=== PATIENT | female | born 1930 | race Caucasian/White ===

== ENCOUNTER 2016-11-23 13:34 | Observation (INO) | payer OTHER ==
[2016-11-23] VITALS (7 sets, daily range): BP systolic 110–147; BP diastolic 69–83; PULSE 82–97; RESP 16–20; TEMP 97.6–97.8; O2SAT 95–96
[~2016-11-23] VITALS: Ht 152.4 cm; Wt 75.0 kg
--- NOTE | 2016-11-23 14:19 | PD ---
HPI Chief Complaint: Cardiac Complaint Time Seen by Provider: 14:13 Travel History International Travel<30 days: No Contact w/Intl Traveler<30days: No Traveled to known affect area: No History of Present Illness HPI 85-year-old female that presents to the ED for evaluation of palpitations. Per patient she was diagnosed on Saturday with atrial fibrillation by her primary care doctor who did an EKG at the time. Per patient she was complaining at the time of shortness of breath with exertion and was found to have A. fib. Patient was started on Cardiazem which she started today as well as a look was. Per patient she's never taken these medications before. Per patient she was told to take the amlodipine and start on the Cardizem. Per patient she was feeling fine today but when she took her carditis and afterwards she started stand up and she felt dizzy and lightheaded. Per patient she did not passed out or fell but ever since she's been having more dizzy spells when she stands. She can barely ambulate without having the vertigo. She denies any chest pain but states having some palpitation-like sensations especially when she lays down. She's never had anything like this before. No history of heart disease. Per patient she is supposed to follow with her rn document improvement specialist sometime soon but because of the insurance it's been an ordeal. She basically came here because of the dizziness and the palpitations. She denies any chest pain. She denies any shortness of breath or time with exertion when she walks for long period of time. She denies any numbness tingling or weakness. No nausea or vomiting. No cold like symptoms. PFSH Past Medical History Hx Anticoagulant Therapy: Yes Atrial Fibrillation: Yes Social History Alcohol Use: No Tobacco Use: No Substance Use: No Allergies-Medications (Allergen,Severity, Reaction): Coded Allergies: No Known Allergies (Unverified , 11/23/16) Reported Meds & Prescriptions Reported Meds & Active Scripts Active Reported Calcium + D3 (Calcium Carbonate-Cholecalciferol) 600-200 Mg-Unit Tab 1 Tab PO DAILY Vitamin D-1000 (Cholecalciferol) 1,000 Unit Tab 1,000 Units PO DAILY Simvastatin 40 Mg Tab 40 Mg PO HS Lisinopril 5 Mg Tab 5 Mg PO DAILY Metoprolol Tartrate 50 Mg Tab 50 Mg PO DAILY Eliquis (Apixaban) 2.5 Mg Tab 2.5 Mg PO DAILY Dilt-Xr (Diltiazem HCl) 240 Mg Caper 240 Mg PO DAILY Review of Systems Except as stated in HPI: all other systems reviewed are Neg Physical Exam Narrative GENERAL: SKIN: Warm and dry. HEAD: Atraumatic. Normocephalic. EYES: Pupils equal and round. No scleral icterus. No injection or drainage. ENT: No nasal bleeding or discharge. Mucous membranes pink and moist. Tongue is midline. No uvula deviation. NECK: Trachea midline. No JVD. CARDIOVASCULAR: Irregular rate and rhythm. No obvious murmurs, S3, S4. RESPIRATORY: No accessory muscle use. Clear to auscultation. Breath sounds equal bilaterally. GASTROINTESTINAL: Abdomen soft, non-tender, nondistended. Hepatic and splenic margins not palpable. MUSCULOSKELETAL: Extremities without clubbing, cyanosis, or edema. No obvious deformities. Full range of motion of the upper and lower extremities bilaterally. 2+ pulses bilaterally. NEUROLOGICAL: Awake and alert. No obvious cranial nerve deficits. Motor grossly within normal limits. Five out of 5 muscle strength in the arms and legs. Normal speech. PSYCHIATRIC: Appropriate mood and affect; insight and judgment normal. Data Data Last Documented VS Vital Signs Date Time Temp Pulse Resp B/P Pulse Ox O2 Delivery O2 Flow Rate FiO2 11/23/16 14:25 95 Room Air 11/23/16 14:25 85 20 130/79 81 20 141/72 101 20 147/78 11/23/16 13:36 97.8 Orders Electrocardiogram (11/23/16 ) Electrocardiogram (11/23/16 13:59) Basic Metabolic Panel (Bmp) (11/23/16 13:59) Ckmb (Isoenzyme) Profile (11/23/16 13:59) Complete Blood Count With Diff (11/23/16 13:59) Magnesium (Mg) (11/23/16 13:59) Prothrombin Time / Inr (Pt) (11/23/16 13:59) Act Partial Throm Time (Ptt) (11/23/16 13:59) Troponin I (11/23/16 13:59) Chest, Single Ap (11/23/16 13:59) Ecg Monitoring (11/23/16 13:59) Bilateral Bp Monitoring (11/23/16 13:59) Iv Access Insert/Monitor (11/23/16 13:59) Oximetry (11/23/16 13:59) Orthostatic Vital Signs (11/23/16 13:59) Labs Laboratory Tests Test 11/23/16 14:10 White Blood Count 11.8 TH/MM3 Red Blood Count 4.26 MIL/MM3 Hemoglobin 12.7 GM/DL Hematocrit 38.5 % Mean Corpuscular Volume 90.5 FL Mean Corpuscular Hemoglobin 29.8 PG Mean Corpuscular Hemoglobin 32.9 % Concent Red Cell Distribution Width 12.9 % Platelet Count 238 TH/MM3 Mean Platelet Volume 8.8 FL Neutrophils (%) (Auto) 73.7 % Lymphocytes (%) (Auto) 16.8 % Monocytes (%) (Auto) 6.2 % Eosinophils (%) (Auto) 2.9 % Basophils (%) (Auto) 0.4 % Neutrophils # (Auto) 8.7 TH/MM3 Lymphocytes # (Auto) 2.0 TH/MM3 Monocytes # (Auto) 0.7 TH/MM3 Eosinophils # (Auto) 0.3 TH/MM3 Basophils # (Auto) 0.0 TH/MM3 CBC Comment DIFF FINAL Differential Comment Prothrombin Time 11.3 SEC Prothromb Time International 1.0 RATIO Ratio Activated Partial 25.8 SEC Thromboplast Time Sodium Level 139 MEQ/L Potassium Level 4.0 MEQ/L Chloride Level 105 MEQ/L Carbon Dioxide Level 27.6 MEQ/L Anion Gap 6 MEQ/L Blood Urea Nitrogen 22 MG/DL Creatinine 1.23 MG/DL Estimat Glomerular Filtration 41 ML/MIN Rate Random Glucose 210 MG/DL Calcium Level 9.5 MG/DL Magnesium Level 1.6 MG/DL Total Creatine Kinase 57 U/L Troponin I LESS THAN 0.02 NG/ML [facility] Medical Decision Making Medical Screen Exam Complete: Yes Emergency Medical Condition: Yes Medical Record Reviewed: Yes Interpretation(s) EKG show A. fib with a rate of 81. No signs of ischemia read by me and attending. CBC & BMP Diagram 11/23/16 14:10 CKMB is negative troponin is negative PT and PTT WNL Last Impressions Chest X-Ray 11/23/16 1921 Signed Impressions: Service Date/Time: Wednesday, November 23, 2016 13:57 - CONCLUSION: Chronic changes without evidence of acute air space disease or significant congestion. Mane Powers MD Differential Diagnosis A. fib versus palpitations versus AK versus electrolyte abnormality versus vacation side effect versus orthostatic hypotension versus dizziness versus vertigo versus lightheadedness Narrative Course 85-year-old female that presents to the ED for evaluation of dizziness and palpitations. Patient was properly examined and was found to have signs and symptoms consistent appears to be A. fib. She does not appear to be in RVR at this time. I question whether most of her symptoms are more related to the side effect of the medication. Patient did not have any palpitations before she had the evaluation Saturday but she does start having it today after taking the Cardizem. Regardless we will start a cardiac workup on her to make sure there is no other acute disease. She is agreeable with this plan. IV was started, EKG and labs ordered. Labs and imaging were essentially unremarkable other than for A. fib. Orthostatics were within normal limits. Family member does tell me that patient did almost fell to the ground. At this time case was discussed in my attending who evaluated the patient and recommends speaking with primary care physician. I spoke personally with Dr. Anderson over the phone who recommends that the patient may be observed and do workup for A. fib and she 's never had this before. Patient is [employer] so [facility] was contacted. Dr Brandon agrees to admission. Procedures EKG Prior to Arrival: No Diagnosis Primary Impression: Pre-syncope Additional Impression: New onset atrial fibrillation Admitting Information Admitting Physician Requests: Observation Mani Ramirez Nov 23, 2016 14:19
[2016-11-23 14:25] LABS: AUTOMATED NEUTROPHIL # 8.7 TH/MM3 (1.8-7.7); BASOPHIL % 0.4 % (0.0-2.0); EOSINOPHIL # 0.3 TH/MM3 (0-0.4); EOSINOPHIL % 2.9 % (0.0-4.0); HEMATOCRIT 38.5 % (35.0-46.0); HEMO FLAGS DIFF FINAL; LYMPH % 16.8 % (9.0-44.0); MEAN CELL VOLUME 90.5 FL (80.0-100.0); MEAN CORPUSCULAR HEMOGLOBIN 29.8 PG (27.0-34.0); MEAN CORPUSCULAR HGB CONC 32.9 % (32.0-36.0); MONO % 6.2 % (0.0-8.0); NEUT % 73.7 % (16.0-70.0); PLATELET COUNT 238 TH/MM3 (150-450); RED BLOOD COUNT 4.26 MIL/MM3 (4.00-5.30); RED CELL DISTRIBUTION WIDTH 12.9 % (11.6-17.2); WHITE BLOOD COUNT 11.8 TH/MM3 (4.0-11.0)
--- NOTE | 2016-11-23 14:32 | RADRPT ---
EXAM DATE/TIME: 11/23/2016 13:57 [facility] COMPARISON: No previous studies available for comparison. INDICATIONS : Tachycardia. MEDICAL HISTORY : Atrial fibrillation SURGICAL HISTORY : section. ENCOUNTER: Initial ACUITY: 1 day PAIN SCORE: 0/10 LOCATION: chest FINDINGS: Mild interstitial prominence is seen in the lungs. There is no evidence of consolidating airspace dis ease or mass densities. There are no effusions. Heart is at the upper limits of normal in size. CONCLUSION: Chronic changes without evidence of acute air space disease or significant congestion. Mane Powers MD on November 23, 2016 at 14:29 Board Certified Radiologist. This report was verified electronically.
[2016-11-23 14:35] LABS: APTT (PATIENT) 25.8 SEC (24.3-30.1); PROTHROMBIN TIME - PATIENT 11.3 SEC (9.8-11.6)
[2016-11-23 14:40] LABS: ANION GAP 6 MEQ/L (5-15); BICARBONATE 27.6 MEQ/L (21.0-32.0); BLOOD UREA NITROGEN 22 MG/DL (7-18); CHLORIDE 105 MEQ/L (98-107); GLOMERULAR FILTRATION RATE 41 ML/MIN (>89); MAGNESIUM 1.6 MG/DL (1.5-2.5); SODIUM (NA) 139 MEQ/L (136-145)
[2016-11-23 14:44] LABS: CREATINE KINASE 57 U/L (26-192)
[2016-11-23] MEDS ORDERED: CALC600T10 PO (15:24)
[2016-11-23] MEDS ORDERED: DILT240C36 PO (15:24)
[2016-11-23] MEDS ORDERED: APIX2.5T PO (15:24)
[2016-11-23] MEDS ORDERED: SIMV40TA PO (15:24)
[2016-11-23] MEDS ORDERED: VITA1000 PO (15:24)
[2016-11-23] MEDS ORDERED: LISI-519 PO (15:24)
[2016-11-23] MEDS ORDERED: METO50TA PO (15:24)
[2016-11-23] MEDS ORDERED: ONDANSETRON HCL 4 MG/2 ML VIAL IV PUSH PRN (15:45)
[2016-11-23] MEDS ORDERED: ACETAMINOPHEN 325 MG TAB PO PRN (15:45)
--- NOTE | 2016-11-23 15:59 | HHI.HP ---
[facility] Physician Lakia Hall MD Admission Diagnosis new onset afib, pre-syncopal episode Diagnoses: (1) New onset atrial fibrillation Diagnosis: Principal (2) Pre-syncope Diagnosis: Principal Chief Complaint: dizziness Travel History International Travel<30 Days: No Contact w/Intl Traveler <30 Da: No Traveled to Known Affected Are: No History of Present Illness patient is a 85 y/o female with history of hypertension and dyslipidemia who presented to ER with dizziness. she says that she's had palpitations for one week. she had an EKG two days ago and was diagnosed with atrial fibrillation. she was started on cardizem and eliquis. she says that she took the first dose of these two medications this morning after which she started to feel dizzy. she denies any syncope, chest pain, sob, nausea or diaphoresis. Review of Systems Constitutional: COMPLAINS OF: Dizziness, DENIES: Fever, Weight loss, Chills, Night Sweats Eyes: DENIES: Blurred vision, Diplopia, Vision loss, Double Vision Ears, nose, mouth, throat: DENIES: Tinnitus, Vertigo, Throat pain, Epistaxis Respiratory: DENIES: Apneas, Cough, Snoring, Wheezing, Hemoptysis, Sputum production, Shortness of breath Cardiovascular: DENIES: Chest pain, Palpitations, Syncope, Dyspnea on Exertion , PND, Lower Extremity Edema, Orthopnea, Claudication Gastrointestinal: DENIES: Abdominal pain, Black stools, Bloody stools, Constipation, Diarrhea, Nausea, Vomiting, Difficulty Swallowing, Anorexia Genitourinary: DENIES: Urinary frequency, Urgency, Hematuria, Dysuria Musculoskeletal: DENIES: Joint pain, Muscle aches, Stiffness, Joint Swelling Integumentary: DENIES: Rash Neurologic: DENIES: Abnormal gait, Headache, Localized weakness, Paresthesias, Seizures, Speech Problems, Tremor, Poor Balance Psychiatric: DENIES: Anxiety, Confusion, Mood changes, Depression, Hallucinations, Agitation, Suicidal Ideation, Homicidal Ideation, Delusions Past Family Social History Past Medical History hypertension dyslipidemia Past Surgical History Reported Medications lisinopril eliquis metoprolol simvastatin cardizem CD Allergies: Coded Allergies: No Known Allergies (Unverified , 11/23/16) Family History not relevant ton this admission. Social History no smoking or drinking. Physical Exam Vital Signs Vital Signs Date Time Temp Pulse Resp B/P Pulse Ox O2 Delivery O2 Flow Rate FiO2 11/23/16 14:25 95 Room Air 11/23/16 14:25 85 20 130/79 81 20 141/72 101 20 147/78 11/23/16 14:15 84 20 147/78 95 11/23/16 13:36 97.8 88 20 146/83 95 Room Air Physical Exam GENERAL: elderly female, in no apparent distress. SKIN: No rashes, ecchymoses or lesions. Cool and dry. HEAD: Atraumatic. Normocephalic. No temporal or scalp tenderness. EYES: Pupils equal round and reactive. Extraocular motions intact. No scleral icterus. No injection or drainage. ENT: Nose without bleeding, purulent drainage or septal hematoma. Throat without erythema, tonsillar hypertrophy or exudate. Uvula midline. Airway patent. NECK: Trachea midline. No JVD or lymphadenopathy. Supple, nontender, no meningeal signs. CARDIOVASCULAR: Regular rate and irregular rhythm without murmurs, gallops, or rubs. RESPIRATORY: Clear to auscultation. Breath sounds equal bilaterally. No wheezes , rales, or rhonchi. GASTROINTESTINAL: Abdomen soft, non-tender, nondistended. No hepato-splenomegaly , or palpable masses. No guarding. MUSCULOSKELETAL: Extremities without clubbing, cyanosis, or edema. No joint tenderness, effusion, or edema noted. No calf tenderness. Negative Homans sign bilaterally. NEUROLOGICAL: Awake and alert. Cranial nerves II through XII intact. Motor and sensory grossly within normal limits. Five out of 5 muscle strength in all muscle groups. Normal speech. Laboratory Laboratory Tests Test 11/23/16 14:10 White Blood Count 11.8 Red Blood Count 4.26 Hemoglobin 12.7 Hematocrit 38.5 Mean Corpuscular Volume 90.5 Mean Corpuscular Hemoglobin 29.8 Mean Corpuscular Hemoglobin 32.9 Concent Red Cell Distribution Width 12.9 Platelet Count 238 Mean Platelet Volume 8.8 Neutrophils (%) (Auto) 73.7 Lymphocytes (%) (Auto) 16.8 Monocytes (%) (Auto) 6.2 Eosinophils (%) (Auto) 2.9 Basophils (%) (Auto) 0.4 Neutrophils # (Auto) 8.7 Lymphocytes # (Auto) 2.0 Monocytes # (Auto) 0.7 Eosinophils # (Auto) 0.3 Basophils # (Auto) 0.0 CBC Comment DIFF FINAL Differential Comment Prothrombin Time 11.3 Prothromb Time International 1.0 Ratio Activated Partial 25.8 Thromboplast Time Sodium Level 139 Potassium Level 4.0 Chloride Level 105 Carbon Dioxide Level 27.6 Anion Gap 6 Blood Urea Nitrogen 22 Creatinine 1.23 Estimat Glomerular Filtration 41 Rate Random Glucose 210 Calcium Level 9.5 Magnesium Level 1.6 Total Creatine Kinase 57 Troponin I LESS THAN 0.02 Result Diagram: 11/23/16 1410 11/23/16 1410 Imaging Last Impressions Chest X-Ray 11/23/16 1359 Signed Impressions: Service Date/Time: Wednesday, November 23, 2016 13:57 - CONCLUSION: Chronic changes without evidence of acute air space disease or significant congestion. Mane Powers MD Assessment and Plan Assessment and Plan A/P - atrial fibrillation- newly diagnosed with near-syncope negative for orthostatic hypotension- hold cardizem- decrease metoprolol and continue eliquis- start gentle IV hydration will check echo- monitor on telemetry- consult cardiology -hypertension; decrease metoprolol- hold lisinopril and cardizem- will monitor -possible acute kidney injury; gentle IV hydration- BMP in am -hyperglycemia?- no history of diabetes- will check A1c -dyslipidemia; resume home meds -DVT prophylaxis; on eliquis Discussed Condition With ER and the patient. Rod Taylor MD Nov 23, 2016 15:59
[2016-11-23] MEDS ORDERED: SODIUM CHLORID 0.9% 500 ML INJ 500 ML IV ONE (16:00)
[2016-11-23] MEDS: PRAVASTATIN SOD 80 MG TAB PO SCH (20:05)
--- NOTE | 2016-11-23 22:02 | EC ---
Study Study Date:11/23/2016 STUDY CONCLUSIONS SUMMARY - Procedure narrative: Transthoracic echocardiography. Image quality was fair. Scanning was performed from the parasternal, apical, and subcostal acoustic windows. - Left ventricle: The cavity size was normal. Wall thickness was normal. Systolic function was mildly to moderately reduced. The estimated ejection fraction was in the range of 40% to 45%. Diffuse hypokinesis. - Mitral valve: Moderate regurgitation. - Tricuspid valve: Mild regurgitation. - Pulmonary arteries: PA peak pressure: 44mm Hg (S). If LV function is below 40, please consider prescribing an ACEI or ARB or document rationale for non-use. PROCEDURE DATA STUDY STATUS: Elective. Procedure: Transthoracic echocardiography. Image quality was fair. Scanning was performed from the parasternal, apical, and subcostal acoustic windows. Study completion: The patient tolerated the procedure well. Transthoracic echocardiography. M-mode, complete 2D, complete spectral Doppler, and color Doppler. Patient status: Inpatient. CARDIAC ANATOMY LEFT VENTRICLE: The cavity size was normal. Wall thickness was normal. Systolic function was mildly to moderately reduced. The estimated ejection fraction was in the range of 40% to 45%. Diffuse hypokinesis. AORTIC VALVE: Trileaflet; normal thickness leaflets. Doppler: Transvalvular velocity was within the normal range. There was no stenosis. No regurgitation. AORTA: Aortic root: The aortic root was normal in size. MITRAL VALVE: Structurally normal valve. Doppler: Transvalvular velocity was within the normal range. There was no evidence for stenosis. Moderate regurgitation. Peak gradient: 3mm Hg (D). LEFT ATRIUM: The atrium was normal in size. RIGHT VENTRICLE: The cavity size was normal. Wall thickness was normal. PULMONIC VALVE: Doppler: Transvalvular velocity was within the normal range. There was no evidence for stenosis. No regurgitation. TRICUSPID VALVE: Structurally normal valve. Doppler: Transvalvular velocity was within the normal range. Mild regurgitation. PULMONARY ARTERY: The main pulmonary artery was normal-sized. Systolic pressure was within the normal range. RIGHT ATRIUM: The atrium was normal in size. PERICARDIUM: There was no pericardial effusion. SYSTEMIC VEINS: Inferior vena cava: The vessel was normal in size. BASIC MEASUREMENTS ADULT Normal Left ventricle LV internal dimension, ED, chordal level, 43.5 mm 43-52 PLAX LV posterior wall thickness, ED 8.21 mm IVS/LVPW ratio, ED *1.38 <1.3 Ventricular septum Septal thickness, ED 11.3 mm Aortic valve Leaflet separation 17 mm 15-26 Left atrium Anterior-posterior dimension 33 mm Right ventricle RV internal dimension, ED, PLAX 23.2 mm 19-38 BASIC MEASUREMENTS ADULT Normal Aortic valve Leaflet separation 17 mm 15-26 Aorta Root diameter, ED 29 mm 20-37 DOPPLER MEASUREMENTS ADULT Normal Main pulmonary artery Pressure, S *44 mm Hg =30 Mitral valve Peak E-wave velocity 93.3 cm/s Peak gradient, D 3 mm Hg Maximal regurgitant velocity 453 cm/s Tricuspid valve Regurgitant peak velocity 293 cm/s Peak RV-RA gradient, S 34 mm Hg Maximal regurgitant velocity 293 cm/s Systemic veins Estimated CVP 10 mm Hg Right ventricle RV pressure, S *44 mm Hg <30 LEGEND: Mean values are shown as u=mean value. Asterisk (*) fajardo values outside specified normal range. Prepared and signed by Nemesio Henley [id number]
[2016-11-24] VITALS (8 sets, daily range): BP systolic 102–145; BP diastolic 43–90; PULSE 64–124; RESP 16–20; TEMP 97.5–98.8; O2SAT 94–98
--- NOTE | 2016-11-24 07:24 | HHI.PR ---
Subjective Remarks resting comfortably with no distress. no chest pain, sob or dizziness. Objective Vitals Vital Signs Date Time Temp Pulse Resp B/P Pulse Ox O2 Delivery O2 Flow Rate FiO2 11/24/16 04:07 97.5 109 20 102/63 95 11/23/16 23:25 97.8 95 20 113/75 96 11/23/16 21:43 85 11/23/16 19:22 97.6 97 20 110/69 96 11/23/16 16:44 82 16 147/78 95 Room Air 11/23/16 14:25 95 Room Air 11/23/16 14:25 85 20 130/79 81 20 141/72 101 20 147/78 11/23/16 14:15 84 20 147/78 95 11/23/16 13:36 97.8 88 20 146/83 95 Room Air I/O 11/23/16 11/23/16 11/23/16 11/24/16 11/24/16 11/24/16 07:00 15:00 23:00 07:00 15:00 23:00 Intake Total 740 ml Balance 740 ml Intake Oral 240 ml IV Total 500 ml # Voids 3 3 Result Diagram: 11/23/16 1410 11/23/16 1410 Imaging Last Impressions Chest X-Ray 11/23/16 1359 Signed Impressions: Service Date/Time: Wednesday, November 23, 2016 13:57 - CONCLUSION: Chronic changes without evidence of acute air space disease or significant congestion. Mane Powers MD Objective Remarks GENERAL: This is a well-nourished, well-developed patient, in no apparent distress. CARDIOVASCULAR: Regular rate and irregular rhythm without murmurs, gallops, or rubs. RESPIRATORY: Clear to auscultation. Breath sounds equal bilaterally. No wheezes , rales, or rhonchi. GASTROINTESTINAL: Abdomen soft, non-tender, nondistended. Normal, active bowel sounds MUSCULOSKELETAL: Extremities without clubbing, cyanosis, or edema. NEURO: Alert & Oriented x4 to person, place, time, situation. Moves all ext x4 Procedures none Medications and IVs Current Medications Ondansetron HCl (Zofran Inj) 4 mg Q8HR PRN IV PUSH NAUSEA; Start 11/23/16 at 15 :45 Acetaminophen (Tylenol) 650 mg Q4H PRN PO FEVER/PAIN; Start 11/23/16 at 15:45 Apixaban (Eliquis) 2.5 mg DAILY PO ; Start 11/24/16 at 09:00 Pravastatin Sodium (Pravachol) 80 mg HS PO Last administered on 11/23/16t 20:05 ; Start 11/23/16 at 21:00 Metoprolol Tartrate 25 mg 25 mg DAILY PO ; Start 11/24/16 at 09:00 Sodium Chloride (NS 500 ml Inj) 500 ml @ 50 mls/hr Q10H ONCE IV Last administered on 11/23/16 17:00; Start 11/23/16 at 16:00; Stop 11/24/16 at 01:59 ; Status DC A/P Assessment and Plan A/P - atrial fibrillation- newly diagnosed with near-syncope negative for orthostatic hypotension- hold cardizem- decreased metoprolol and continue eliquis- echo with EF 40-45%- monitor on telemetry- consulted cardiology -hypertension; decrease metoprolol- hold lisinopril and cardizem- will monitor -possible acute kidney injury; received gentle IV hydration- -hyperglycemia?- no history of diabetes- check A1c -dyslipidemia; resume home meds -DVT prophylaxis; on eliquis Discharge Planning awaiting cardiology evaluation. Rod Taylor MD Nov 24, 2016 07:24
[2016-11-24 08:03] LABS: POTASSIUM 3.6 MEQ/L (3.5-5.1)
[2016-11-24] MEDS ORDERED: METOPROLOL TARTRATE 25 MG TAB PO SCH (09:00)
[2016-11-24] MEDS ORDERED: APIXABAN 2.5 MG TABLET PO SCH (09:00)
[2016-11-24 10:33] LABS: HEMOGLOBIN A1a 0.9 %; HEMOGLOBIN A1b 1.7 %; HEMOGLOBIN Ao 84.4 %; HEMOGLOBIN LA1C 2.4 %; HEMOGLOBIN P3 4.2 %
--- NOTE | 2016-11-24 15:58 | EKG ---
Date Performed: 11/23/2016 Time Performed: 14:07:33 PTAGE: 85 years EKG: ATRIAL FIBRILLATION NONSPECIFIC ST & T-WAVE ABNORMALITY Clinical correlation is recommended ABNORMAL RHYTHM ECG NO PREVIOUS TRACING DOCTOR: Flip Rothman Interpretating Date/Time 11/24/2016 15:58:25
--- NOTE | 2016-11-24 16:04 | MB ---
cc: ARLEN KEMP MD DATE OF CONSULTATION: 11/14/2016 REASON FOR CONSULTATION: New onset atrial fibrillation. HISTORY OF PRESENT ILLNESS: The patient is a very pleasant 85-year-old woman with a history of hypertension and hyperlipidemia who presented to her primary care physician with general / nonspecific complaints of fatigue and weakness and was found to have atrial fibrillation. She was started on Eliquis and diltiazem 240 milligrams daily. She began these medications the next day and fairly quickly afterwards began feeling very poor / weak / presyncopal and thus presented to the emergency department. Here she has been in reasonably controlled atrial fibrillation and she feels much better. She denies any current chest pain, shortness of breath, lightheadedness or dizziness. PAST MEDICAL HISTORY: As above. MEDICATIONS Her current medications are: 1. Metoprolol 15 milligrams twice a day. 2. Eliquis 2.5 milligrams daily. ALLERGIES: NO KNOWN DRUG ALLERGIES. PHYSICAL EXAMINATION: VITAL SIGNS: Afebrile, pulse 77, respiratory rate 80, blood pressure 131/90, satting 96% on room air. GENERAL: A pleasant well-appearing elderly woman in no acute distress. NECK: No jugular venous distention. LUNGS: Clear to auscultation bilaterally. CARDIOVASCULAR: Irregularly irregular rhythm with regular rate. No murmurs appreciated. ABDOMEN: Benign. EXTREMITIES: No edema. LABORATORY DATA: Troponin x1. Sodium 145, potassium 3.6, chloride 109, bicarbonate 27.0, BUN 19, creatinine 0.96, glucose 105. White count 11.8, hematocrit 38.5, platelet count 238,000. CARDIOLOGY STUDIES: EKG shows atrial fibrillation at a rate of [address] changes. Echocardiogram shows an ejection fraction of 40% to 45% with moderate mitral regurgitation. IMPRESSION: 1. New onset atrial fibrillation. Patient with newly discovered atrial fibrillation by her PCP felt presyncopal, I suspect due to perhaps bradycardic rate from an increase in her AV lorena blocking medications. She is currently off her diltiazem but her rates are slightly high. I have started her on 50 milligrams of metoprolol twice a day and we can watch her telemetry to see how her rates do. 2. Cardiomyopathy. 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 She is currently on metoprolol. I will add low-dose lisinopril as well. I will have her undergo a nuclear stress test to ensure no sign of an ischemic etiology. I suspect she will be able to be discharged home tomorrow. 3. With regard to her anticoagulation, her creatinine is below 1.5, so given her weight she would qualify for full dose Eliquis for anticoagulation so I will make that adjustment now. Further recommendations based on her clinical course. Thank you again for the opportunity to participate in this patient's care. MD JANICE Ramos/VALENTINA /2:40 PM /3:46 PM
[2016-11-24] MEDS: METOPROLOL TARTRATE 50 MG TAB PO SCH (21:23)
[2016-11-24] MEDS: PRAVASTATIN SOD 80 MG TAB PO SCH (21:24)
[2016-11-25] VITALS (8 sets, daily range): BP systolic 118–140; BP diastolic 57–79; PULSE 60–120; RESP 16–21; TEMP 96.1–98.7; O2SAT 93–98
--- NOTE | 2016-11-25 08:16 | HHI.PR ---
Subjective Remarks resting comfortably with no distress. overall doing fine. no chest pain, sob or palpitations. Objective Vitals Vital Signs Date Time Temp Pulse Resp B/P Pulse Ox O2 Delivery O2 Flow Rate FiO2 11/25/16 07:40 97.7 67 16 127/75 98 11/25/16 05:01 98.7 78 18 126/65 97 11/24/16 23:57 98.8 64 18 121/57 98 11/24/16 20:39 98.8 95 18 117/57 94 11/24/16 20:00 102 11/24/16 17:01 70 20 145/63 96 11/24/16 16:14 98.2 70 16 102/43 95 I/O 11/24/16 11/24/16 11/24/16 11/25/16 11/25/16 11/25/16 07:00 15:00 23:00 07:00 15:00 23:00 Intake Total 740 ml 360 ml Output Total 1 ml Balance 740 ml 359 ml Intake Oral 240 ml 360 ml IV Total 500 ml Output Stool Total 1 ml # Voids 3 2 Result Diagram: 11/23/16 1410 11/24/16 0635 Imaging Last Impressions Chest X-Ray 11/23/16 1359 Signed Impressions: Service Date/Time: Wednesday, November 23, 2016 13:57 - CONCLUSION: Chronic changes without evidence of acute air space disease or significant congestion. Mane Powers MD Objective Remarks GENERAL: This is a well-nourished, well-developed patient, in no apparent distress. CARDIOVASCULAR: Regular rate and irregular rhythm without murmurs, gallops, or rubs. RESPIRATORY: Clear to auscultation. Breath sounds equal bilaterally. No wheezes , rales, or rhonchi. GASTROINTESTINAL: Abdomen soft, non-tender, nondistended. Normal, active bowel sounds MUSCULOSKELETAL: Extremities without clubbing, cyanosis, or edema. NEURO: Alert & Oriented x4 to person, place, time, situation. Moves all ext x4 Procedures none Medications and IVs Current Medications Ondansetron HCl (Zofran Inj) 4 mg Q8HR PRN IV PUSH NAUSEA; Start 11/23/16 at 15 :45 Acetaminophen (Tylenol) 650 mg Q4H PRN PO FEVER/PAIN; Start 11/23/16 at 15:45 Apixaban (Eliquis) 2.5 mg DAILY PO Last administered on 11/24/16 08:26; Start 11/24/16 at 09:00; Stop 11/24/16 at 14:42; Status DC Pravastatin Sodium (Pravachol) 80 mg HS PO Last administered on 11/24/16 21:24 ; Start 11/23/16 at 21:00 Metoprolol Tartrate 25 mg 25 mg DAILY PO Last administered on 11/24/16 08:26; Start 11/24/16 at 09:00; Stop 11/24/16 at 14:35; Status DC Sodium Chloride (NS 500 ml Inj) 500 ml @ 50 mls/hr Q10H ONCE IV Last administered on 11/23/16 17:00; Start 11/23/16 at 16:00; Stop 11/24/16 at 01:59 ; Status DC Metoprolol Tartrate (Lopressor) 50 mg BID PO Last administered on 11/24/16 21: 23; Start 11/24/16 at 21:00 Apixaban (Eliquis) 5 mg DAILY PO ; Start 11/25/16 at 09:00 A/P Assessment and Plan A/P - atrial fibrillation- newly diagnosed with near-syncope negative for orthostatic hypotension- hold cardizem- contyinue metoprolol and continue eliquis- echo with EF 40-45%-will add low dose TAMI-I- monitor on telemetry- cardiology consult appreciated- awaiting stress test. -hypertension; on metoprolol- start low dose lisinopril and hold cardizem- will monitor -possible acute kidney injury; received gentle IV hydration- -hyperglycemia?- no history of diabetes- A1c; 6. -dyslipidemia; resumed home meds -DVT prophylaxis; on eliquis Discharge Planning possible dc home later today . case management for [facility]. see med list. f/u; pcp and cardiology. d/w the patient. Rod Taylor MD Nov 25, 2016 08:16
[2016-11-25] MEDS ORDERED: LISI2.5T3 PO (08:18)
[2016-11-25] MEDS ORDERED: APIX5TAB PO (08:18)
[2016-11-25] MEDS ORDERED: METO50TA PO (08:18)
--- NOTE | 2016-11-25 08:19 | HHI.FF ---
Face to Face Verification Diagnosis: (1) New onset atrial fibrillation Home Health Nursing Order: Medical education Signs/symptoms of disease process Medication education-adverse effect Nursing assessment with vital signs I have seen patient Guera Del Castillo on 11/25/16. My clinical findings support the need for the requested home health care services because: Ltd mobility - disease progression I certify that my clinical findings support that this patient is homebound because: Poor cardiac reserve Rod Taylor MD Nov 25, 2016 08:19
[2016-11-25] MEDS: APIXABAN 5 MG TABLET PO SCH (08:46)
[2016-11-25] MEDS: METOPROLOL TARTRATE 50 MG TAB PO SCH ×2 (08:46→21:20)
[2016-11-25] MEDS ORDERED: REGADENOSON INJ 0.4 MG/5 ML SYR ONE (14:08)
--- NOTE | 2016-11-25 15:24 | RADRPT ---
EXAM DATE/TIME: 11/25/2016 13:47 [place] COMPARISON: No previous studies available for comparison. INDICATIONS : Fatigue and weakness past couple of days. Atrial fibrillation. DOSE: 25.6 mCi Tc99m Myoview at stress. 8.1 mCi Tc99m Myoview at rest. 0.4 mg Lexiscan STRESS SYMPTOMS: Shortness of breath. EJECTION FRACTION: 67% MEDICAL HISTORY : Hypertension. Hypercholesterolemia. SURGICAL HISTORY : section. ENCOUNTER: Initial ACUITY: 1 day PAIN SCALE: 3/10 LOCATION: Bilateral chest TECHNIQUE: The patient underwent pharmacologic stress with infusion of prescribed dose. Continuous ECG tracing was monitored during stress. Gated SPECT imaging was performed after stress and conventional SPECT i maging was performed at rest. The examination was performed on a SPECT/CT scanner, both attenuation and non-corrected datasets were reviewed. FINDINGS: Best perfused myocardium is the anterior lateral wall followed by the inferior wall. There are no fi xed defects evident. There is no redistribution suggest stress-induced ischemia. Ejection fraction is 67% with reasonably normal wall motion. CONCLUSION: Negative for stress-induced ischemia RISK CATEGORY: Low (<1% Annual Mortality Rate) Rishi Dobbins MD FACR on November 25, 2016 at 15:21 Board Certified Radiologist. This report was verified electronically.
--- NOTE | 2016-11-25 15:48 | PD.CARD.PN ---
Subjective Subjective Remarks Pt feels well, mildly rapid afib on tele. Objective Medications Administered Medications Medications (Trade) Dose Ordered Sig/Lia Route PRN Reason Start Time Stop Time Status Last Admin Dose Admin Pravastatin Sodium (Pravachol) 80 mg HS PO 11/23/16 21:00 11/24/16 21:24 Metoprolol Tartrate (Lopressor) 50 mg BID PO 11/24/16 21:00 11/25/16 08:46 Apixaban (Eliquis) 5 mg DAILY PO 11/25/16 09:00 11/25/16 08:46 Vital Signs / I&O Vital Signs Date Time Temp Pulse Resp B/P Pulse Ox O2 Delivery O2 Flow Rate FiO2 11/25/16 12:00 96.1 60 18 140/78 93 11/25/16 08:00 86 11/25/16 07:40 97.7 67 16 127/75 98 11/25/16 05:01 98.7 78 18 126/65 97 11/24/16 23:57 98.8 64 18 121/57 98 11/24/16 20:39 98.8 95 18 117/57 94 11/24/16 20:00 102 11/24/16 17:01 70 20 145/63 96 11/24/16 16:14 98.2 70 16 102/43 95 I/O 11/24/16 11/24/16 11/24/16 11/25/16 11/25/16 11/25/16 07:00 15:00 23:00 07:00 15:00 23:00 Intake Total 740 ml 360 ml Output Total 1 ml Balance 740 ml 359 ml Intake Oral 240 ml 360 ml IV Total 500 ml Output Stool Total 1 ml # Voids 3 2 Physical Exam GENERAL: This is a well-nourished, well-developed patient, in no apparent distress. CARDIOVASCULAR: Mildly rapid rate and irregular rhythm without murmurs, gallops , or rubs. RESPIRATORY: Clear to auscultation. Breath sounds equal bilaterally. No wheezes , rales, or rhonchi. GASTROINTESTINAL: Abdomen soft, non-tender, nondistended. Normal, active bowel sounds MUSCULOSKELETAL: Extremities without clubbing, cyanosis, or edema. NEURO: Alert & Oriented x4 to person, place, time, situation. Moves all ext x4 Imaging Last Impressions Chest X-Ray 11/23/16 4828 Signed Impressions: Service Date/Time: Wednesday, November 23, 2016 13:57 - CONCLUSION: Chronic changes without evidence of acute air space disease or significant congestion. Mane Powers MD Assessment and Plan Problem List: (1) New onset atrial fibrillation Assessment and Plan: on eliquis, will add back low dose diltiazem as rates still too high, if controlled with this she could possibly go in the AM. (2) Cardiomyopathy Assessment and Plan: Mild by echo but normal LVEF by nuclear (usually this is reversed); will continue current medical therapy. No ischemia seen by nuc. Deni Roblero MD Nov 25, 2016 15:48
[2016-11-25] MEDS: DILTIAZEM HCL 30 MG TAB PO SCH ×2 (18:03→21:20)
[2016-11-25] MEDS: PRAVASTATIN SOD 80 MG TAB PO SCH (21:20)
[2016-11-26] VITALS (8 sets, daily range): BP systolic 98–121; BP diastolic 56–78; PULSE 64–119; RESP 18–20; TEMP 97.8–98.8; O2SAT 93–98
--- NOTE | 2016-11-26 07:37 | HHI.PR ---
Subjective Remarks resting comfortably with no distress. no chest pain, sob or dizziness. HR still elevated. Objective Vitals Vital Signs Date Time Temp Pulse Resp B/P Pulse Ox O2 Delivery O2 Flow Rate FiO2 11/26/16 04:45 98.8 87 18 120/78 98 11/25/16 23:42 98.7 64 16 118/57 97 11/25/16 20:42 98.7 87 21 121/66 97 11/25/16 20:00 120 11/25/16 16:00 96.3 114 20 125/79 96 11/25/16 12:00 96.1 60 18 140/78 93 11/25/16 08:00 86 11/25/16 07:40 97.7 67 16 127/75 98 I/O 11/25/16 11/25/16 11/25/16 11/26/16 11/26/16 11/26/16 07:00 15:00 23:00 07:00 15:00 23:00 Intake Total 360 ml 482 ml 480 ml Output Total 1 ml Balance 359 ml 482 ml 480 ml Intake Oral 360 ml 480 ml 480 ml IV Total 2 ml Output Stool Total 1 ml # Voids 2 8 4 # Bowel Movements 2 Result Diagram: 11/23/16 1410 11/24/16 0635 Imaging Last Impressions Myocardial Perfusion Scan Nuc Med 11/25/16 0000 Signed Impressions: Service Date/Time: Friday, November 25, 2016 13:47 - CONCLUSION: Negative for stress-induced ischemia RISK CATEGORY: Low (<1%% Annual Mortality Rate) Rishi Dobbins MD FACR Chest X-Ray 11/23/16 1359 Signed Impressions: Service Date/Time: Wednesday, November 23, 2016 13:57 - CONCLUSION: Chronic changes without evidence of acute air space disease or significant congestion. Mane Powers MD Objective Remarks GENERAL: This is a well-nourished, well-developed patient, in no apparent distress. CARDIOVASCULAR: tachycardic with irregular rhythm without murmurs, gallops, or rubs. RESPIRATORY: Clear to auscultation. Breath sounds equal bilaterally. No wheezes , rales, or rhonchi. GASTROINTESTINAL: Abdomen soft, non-tender, nondistended. Normal, active bowel sounds MUSCULOSKELETAL: Extremities without clubbing, cyanosis, or edema. NEURO: Alert & Oriented x4 to person, place, time, situation. Moves all ext x4 Procedures none Medications and IVs Current Medications Ondansetron HCl (Zofran Inj) 4 mg Q8HR PRN IV PUSH NAUSEA; Start 11/23/16 at 15 :45 Acetaminophen (Tylenol) 650 mg Q4H PRN PO FEVER/PAIN; Start 11/23/16 at 15:45 Apixaban (Eliquis) 2.5 mg DAILY PO Last administered on 11/24/16 08:26; Start 11/24/16 at 09:00; Stop 11/24/16 at 14:42; Status DC Pravastatin Sodium (Pravachol) 80 mg HS PO Last administered on 11/25/16 21:20 ; Start 11/23/16 at 21:00 Metoprolol Tartrate 25 mg 25 mg DAILY PO Last administered on 11/24/16 08:26; Start 11/24/16 at 09:00; Stop 11/24/16 at 14:35; Status DC Sodium Chloride (NS 500 ml Inj) 500 ml @ 50 mls/hr Q10H ONCE IV Last administered on 11/23/16 17:00; Start 11/23/16 at 16:00; Stop 11/24/16 at 01:59 ; Status DC Metoprolol Tartrate (Lopressor) 50 mg BID PO Last administered on 11/25/16 21: 20; Start 11/24/16 at 21:00 Apixaban (Eliquis) 5 mg DAILY PO Last administered on 11/25/16 08:46; Start at 09:00 Regadenoson (Lexiscan Inj) 0.4 mg STK-MED ONCE .ROUTE Last administered on 11/25 14:08; Start 11/25/16 at 14:08; Stop 11/25/16 at 14:09; Status DC Diltiazem HCl (Cardizem) 30 mg QID PO Last administered on 11/25/16 21:20; Start 11/25/16 at 18:00 A/P Assessment and Plan A/P - atrial fibrillation- newly diagnosed with near-syncope- still tachycardic negative for orthostatic hypotension- cardizem was restarted.will increase metoprolol.continue eliquis. echo with EF 40-45%-stress test negative for ischemia. continue to monitor on telemetry- cardiology following. -cardiomyopathy; low EF by echo but normal by stress test- continue current medical therapy per cardiology -hypertension; on metoprolol and cardizem- will monitor - acute kidney injury;improved after IV hydration -hyperglycemia?-resolved- no history of diabetes- A1c; 6. -dyslipidemia; resumed home meds -DVT prophylaxis; on eliquis Discharge Planning possible dc home in am if HR better controlled. will have [facility] upon discharge. oRd Taylor MD Nov 26, 2016 07:37
[2016-11-26] MEDS ORDERED: PILL SPLITTER OTHER PRN (07:45)
[2016-11-26] MEDS: DILTIAZEM HCL 30 MG TAB PO SCH (08:13)
[2016-11-26] MEDS: METOPROLOL TARTRATE 50 MG TAB PO SCH ×2 (08:14→21:34)
[2016-11-26] MEDS: APIXABAN 5 MG TABLET PO SCH (08:14)
[2016-11-26] MEDS ORDERED: DILTIAZEM HCL 30 MG TAB PO ONE (11:00)
[2016-11-26] MEDS: DILTIAZEM HCL 60 MG TAB PO SCH ×3 (13:30→20:58)
[2016-11-26] MEDS: PRAVASTATIN SOD 80 MG TAB PO SCH (20:58)
[2016-11-27 00:07] VITALS: BP 126/76; PULSE 67; RESP 18; TEMP 97.8; O2SAT 98
[2016-11-27 05:24] VITALS: BP 128/82; PULSE 87; RESP 18; TEMP 98; O2SAT 98
[2016-11-27 08:15] VITALS: BP 140/90; PULSE 126; RESP 20; TEMP 97.9; O2SAT 96
[2016-11-27 09:00] VITALS: PULSE 89
[2016-11-27] MEDS: DILTIAZEM HCL 60 MG TAB PO SCH ×3 (09:06→18:04)
[2016-11-27] MEDS: METOPROLOL TARTRATE 50 MG TAB PO SCH (09:06)
[2016-11-27] MEDS: APIXABAN 5 MG TABLET PO SCH (09:06)
--- NOTE | 2016-11-27 09:10 | HHI.PR ---
Subjective Remarks Follow-up of atrial fibrillation. Patient still is having occasional heart palpitations, but states they're mild and don't bother her much. HR still currently 110's. She denies any chest pain or shortness of breath. She feels like after she started on the increase Cardizem to reduce yesterday afternoon, the palpitations got worse. He denies any lightheadedness or dizziness. She isn't up to the chair at bedside, but hasn't been ambulating much here in the hospital, uses a walker at home. Objective Vitals Vital Signs Date Time Temp Pulse Resp B/P Pulse Ox O2 Delivery O2 Flow Rate FiO2 11/27/16 08:15 97.9 126 20 140/90 96 11/27/16 05:24 98.0 87 18 128/82 98 11/27/16 00:07 97.8 67 18 126/76 98 11/26/16 21:15 98.4 73 18 121/78 93 11/26/16 16:56 71 11/26/16 15:44 98.2 66 18 98/56 95 11/26/16 15:20 64 11/26/16 11:34 97.8 73 18 111/62 95 11/26/16 09:26 92 I/O 11/26/16 11/26/16 11/26/16 11/27/16 11/27/16 11/27/16 07:00 15:00 23:00 07:00 15:00 23:00 Intake Total 480 ml 0 ml 240 ml Balance 480 ml 0 ml 240 ml Intake Oral 480 ml 240 ml IV Total 0 ml # Voids 4 2 Result Diagram: 11/23/16 1410 11/24/16 0635 Imaging Last Impressions Myocardial Perfusion Scan Nuc Med 11/25/16 0000 Signed Impressions: Service Date/Time: Friday, November 25, 2016 13:47 - CONCLUSION: Negative for stress-induced ischemia RISK CATEGORY: Low (<1%% Annual Mortality Rate) Rishi Dobbins MD FACR Chest X-Ray 11/23/16 1359 Signed Impressions: Service Date/Time: Wednesday, November 23, 2016 13:57 - CONCLUSION: Chronic changes without evidence of acute air space disease or significant congestion. Mane Powers MD Objective Remarks GENERAL: Well-developed well-nourished. In no acute distress. SKIN: Warm and dry. No lesions noted. HEENT: Normocephalic. Pupils equal and round. Mucous membranes pink and moist. CARDIOVASCULAR: Irregular tachycardic rate and irregular rhythm. No murmur appreciated. RESPIRATORY: No accessory muscle use. Clear to auscultation. Breath sounds equal bilaterally. GASTROINTESTINAL: Abdomen soft, non-tender, nondistended. Bowel sounds x4. MUSCULOSKELETAL: No obvious deformities. No clubbing or cyanosis. No edema. NEUROLOGICAL: Awake and alert. No focal neurological deficits. Moves upper and lower extremities spontaneously. Normal speech. PSYCHIATRIC: Appropriate mood and affect; insight and judgment normal. Procedures none A/P Problem List: (1) New onset atrial fibrillation ICD Code: I48.91 Status: Acute (2) Pre-syncope ICD Code: R55 Status: Acute Assessment and Plan 85 y/o female with history of hypertension and dyslipidemia who presented to ED with dizziness New-onset atrial fibrillation with near syncope: Non-orthostatic. Echocardiogram with no thrombosis. Stress test with no ischemia. TSH within normal limits. Continue telemetry monitoring. Cardiology consulted, adjusting medications. Currently on metoprolol and Cardizem. Remains tachycardic, episodes of soft BP. Check potassium and magnesium, replace if needed. On Eliquis. 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 Cardiology consulted as above. Continue metoprolol. Hypertension: Home lisinopril DC'd, adjusting rate control meds as above. Her metoprolol dose increased. On Cardizem. Monitor. Mild JOEY: Creatinine 1.23, improved to 0.96 with IVF. Resolved. Hyperglycemia: Random glucose 210 at admission, possibly from A. fib as above. Fasting glucose 105. Hemoglobin A1c 6.0. Outpatient PCP follow-up. Hyperlipidemia: Continue home medications PT out of bed -DVT prophylaxis; on eliquis Discharge Planning Discharge planning when heart rate is better controlled. Attending Statement The exam, history, and the medical decision-making described in the above note were completed with the assistance of the mid-level provider. I reviewed and agree with the findings presented. I attest that I had a [id number] encounter with the patient on the same day, and personally performed and documented my assessment and findings in the medical record. Torrey Arroyo Nov 27, 2016 09:10 Dao Renee MD Dec 06, 2016 07:27
[2016-11-27 11:04] LABS: BICARBONATE 26.6 MEQ/L (21.0-32.0); MAGNESIUM 1.7 MG/DL (1.5-2.5); POTASSIUM 3.7 MEQ/L (3.5-5.1)
[2016-11-27 12:42] VITALS: BP 104/64; PULSE 101; RESP 18; TEMP 97.9; O2SAT 95
[2016-11-27 16:09] VITALS: BP 108/57; PULSE 96; RESP 18; TEMP 98; O2SAT 96
--- NOTE | 2016-11-27 17:56 | HHI.FF ---
Face to Face Verification Diagnosis: (1) Pre-syncope (2) New onset atrial fibrillation (3) Cardiomyopathy Physical Therapy Order: Evaluate and Treat, Improve ambulation, Strength and gait training Home Health Nursing Order: Medical education Signs/symptoms of disease process CHF education Medication education-adverse effect Nursing assessment with vital signs I have seen patient Guera Del Castillo on 11/27/16. My clinical findings support the need for the requested home health care services because: Ltd mobility - disease progression Patient has SOB Deconditioned w/ increased weakness Limited ability to care for self I certify that my clinical findings support that this patient is homebound because: Unsteady gait/balance Poor cardiac reserve Torrey Arroyo Nov 27, 2016 17:56
--- NOTE | 2016-11-27 17:59 | HHI.DS ---
Discharge Summary Admission Date Nov 23, 2016 at 15:40 Discharge Date: Nov 27, 2016 Admitting Diagnosis new onset afib, pre-syncopal episode (1) New onset atrial fibrillation ICD Code: I48.91 Diagnosis: Principal (2) Pre-syncope ICD Code: R55 Diagnosis: Principal (3) Cardiomyopathy ICD Code: I42.9 Diagnosis: Secondary Procedures none Brief History - From Admission patient is a 85 y/o female with history of hypertension and dyslipidemia who presented to ER with dizziness. she says that she's had palpitations for one week. she had an EKG two days ago and was diagnosed with atrial fibrillation. she was started on cardizem and eliquis. she says that she took the first dose of these two medications this morning after which she started to feel dizzy. she denies any syncope, chest pain, sob, nausea or diaphoresis. CBC/BMP: 11/23/16 1410 11/27/16 1020 Significant Findings Laboratory Tests Test 11/27/16 10:20 Blood Urea Nitrogen 21 MG/DL (7-18) Creatinine 1.07 MG/DL (0.50-1.00) Estimat Glomerular Filtration 49 ML/MIN (>89) Rate Random Glucose 217 MG/DL (74-106) Imaging Last Impressions Myocardial Perfusion Scan Nuc Med 11/25/16 0000 Signed Impressions: Service Date/Time: Friday, November 25, 2016 13:47 - CONCLUSION: Negative for stress-induced ischemia RISK CATEGORY: Low (<1%% Annual Mortality Rate) Rishi Dobbins MD FACR Chest X-Ray 11/23/16 1359 Signed Impressions: Service Date/Time: Wednesday, November 23, 2016 13:57 - CONCLUSION: Chronic changes without evidence of acute air space disease or significant congestion. Mane Powers MD PE at Discharge GENERAL: Well-developed well-nourished. In no acute distress. SKIN: Warm and dry. No lesions noted. HEENT: Normocephalic. Pupils equal and round. Mucous membranes pink and moist. CARDIOVASCULAR: Irregular tachycardic rate and irregular rhythm. No murmur appreciated. RESPIRATORY: No accessory muscle use. Clear to auscultation. Breath sounds equal bilaterally. GASTROINTESTINAL: Abdomen soft, non-tender, nondistended. Bowel sounds x4. MUSCULOSKELETAL: No obvious deformities. No clubbing or cyanosis. No edema. NEUROLOGICAL: Awake and alert. No focal neurological deficits. Moves upper and lower extremities spontaneously. Normal speech. PSYCHIATRIC: Appropriate mood and affect; insight and judgment normal. Pt update on day of discharge Heart rate is better controlled on telemetry today since increased Cardizem started yesterday. PT recommends [facility], case management to arrange. Discussed with Dr. Renee. Hospital Course 85 y/o female with history of hypertension and dyslipidemia who presented to ED with dizziness New-onset atrial fibrillation with near syncope: Non-orthostatic. Echocardiogram with no thrombosis. Stress test with no ischemia. TSH within normal limits. Continue telemetry monitoring. Cardiology consulted, adjusted medications. Continue on metoprolol 75 mg twice a day and Cardizem CD 240 mg. Potassium and magnesium within normal limits. On Eliquis. Outpatient cardiology follow-up. 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 Cardiology consulted as above. Continue metoprolol. Hypertension: Home lisinopril DC'd to increase rate control meds as above. Continue metoprolol and Cardizem. Mild JOEY: Creatinine 1.23, improved to 0.96 with IVF. Resolved. Hyperglycemia: Random glucose 210 at admission, possibly from A. fib as above. Fasting glucose 105. Hemoglobin A1c 6.0. Outpatient PCP follow-up. Hyperlipidemia: Continue home medications Pt Condition on Discharge: Stable Discharge Disposition: Disch w/ Home Health Serv Discharge Time: > 30 minutes Discharge Instructions DIET: Follow Instructions for: Heart Healthy Diet Activities you can perform: Regular-No Restrictions Follow up Referrals: Cardiology PCP Follow-up New Medications: Apixaban (Eliquis) 5 Mg Tab 5 MG PO DAILY a-fib Days 30 Ref 0 TAB Continued Medications: Calcium Carbonate-Cholecalciferol (Calcium + D3) 600-200 Mg-Unit Tab 1 TAB PO DAILY TAB Cholecalciferol (Vitamin D-1000) 1,000 Unit Tab 1000 UNITS PO DAILY Nutritional Supplement Ref 0 BOTTLE Simvastatin (Simvastatin) 40 Mg Tab 40 MG PO HS Cholesterol Management Ref 0 TAB Discontinued Medications: Apixaban (Eliquis) 2.5 Mg Tab 2.5 MG PO DAILY Blood Clot Prevention Ref 0 TAB Diltiazem ER 24 HR (Dilt-Xr) 240 Mg Caper 240 MG PO DAILY Ref 0 CAP Lisinopril (Lisinopril) 5 Mg Tab 5 MG PO DAILY Blood Pressure Management Ref 0 TAB Additional Information The exam, history, and the medical decision-making described in the above note were completed with the assistance of the mid-level provider. I reviewed and agree with the findings presented. I attest that I had a [id number] encounter with the patient on the same day, and personally performed and documented my assessment and findings in the medical record. Torrey Arroyo Nov 27, 2016 17:59 Dao Renee MD Dec 06, 2016 07:39
== END 2016-11-27 20:06 | disposition home or self-care (01) ==
LOC: EDBD → NEPC 13:34 → NEDA 15:40 → NEPGCP 17:51
PROVIDERS: ADMIT Internal Medicine; ATTEND Internal Medicine
DX: I48.91 Unspecified atrial fibrillation (principal); R55 Syncope and collapse; R00.2 Palpitations; I10 Essential (primary) hypertension; E78.5 Hyperlipidemia, unspecified; R53.1 Weakness; I42.9 Cardiomyopathy, unspecified; Z79.01 Long term (current) use of anticoagulants
CPT/HCPCS: 71010; 78452; 80048; 82550; 83036; 83735; 84443; 84484; 85025; 85610; 85730; 93005; 93017; 93306; 97163; 99285; A9502; G0378; G8987; G8988; J2785; J7040

== ENCOUNTER 2016-12-14 14:02 | Inpatient (IN) | payer OTHER, MEDICARE ==
[~2016-12-14] VITALS: Ht 160 cm; Wt 70.0 kg
[2016-12-14] VITALS (7 sets, daily range): BP systolic 114–160; BP diastolic 65–94; PULSE 78–134; RESP 16–18; TEMP 98.1; O2SAT 93–98
[~2016-12-14 14:02] MED LIST: APIX5TAB PO; CALC600T10 PO; SIMV40TA PO; VITA1000 PO
[2016-12-14] MEDS ORDERED: SODIUM CHLORIDE 0.9% FLUSH 5 ML FLUSH IVF PRN (14:45)
--- NOTE | 2016-12-14 14:47 | PD ---
HPI Chief Complaint: Cardiac Complaint Time Seen by Provider: 14:35 Travel History International Travel<30 days: No Contact w/Intl Traveler<30days: No Traveled to known affect area: No History of Present Illness HPI 86-year-old female who was admitted on November 23 for new onset atrial fibrillation presents now for evaluation of tachycardia. The patient reports that she is currently prescribed metoprolol 50 mg BID, eliquis, she was started on diltiazem 120 mg daily 6 days ago, she has also been taking lisinopril hydrochlorothiazide. She reports that throughout the week her heart rate has been well controlled with a rate in between 60 and 80. Her blood pressure is also been well-controlled. Today her heart rate was high in the 130s and her home health nurse advised that she come to the emergency room for evaluation. Her automobile body repair supervisor is Dr. Roblero and she has an appointment in 3 days. She is denying any palpitations, chest pain, shortness of breath, nausea or vomiting , diaphoresis. She does note that she has been having some lower extremity edema over the past for 5 days. She denies any pain in the legs. She has been taking her medication as prescribed. During the course of her hospitalization she did receive an echocardiogram revealing an ejection fraction of 40-45%. She had a normal myocardial perfusion scan. No other complaints. PFSH Past Medical History Hx Anticoagulant Therapy: Yes Asthma: No Atrial Fibrillation: Yes Blood Disorders: No Anxiety: No Depression: No Heart Rhythm Problems: Yes (a fib) Cancer: No Cardiovascular Problems: Yes (A. FIB) High Cholesterol: Yes Chemotherapy: No Chest Pain: No Congestive Heart Failure: No COPD: No Diabetes: No Diminished Hearing: No Endocrine: No Genitourinary: No Hypertension: Yes Immune Disorder: No Musculoskeletal: No Neurologic: No Psychiatric: No Reproductive: No Respiratory: No Radiation Therapy: No Sleep Apnea: No Thyroid Disease: No : 2 Para: 2 Miscarriage: 0 : 0 Past Surgical History Section: Yes (X 2) Social History Alcohol Use: No Tobacco Use: No Substance Use: No Allergies-Medications (Allergen,Severity, Reaction): Coded Allergies: No Known Allergies (Unverified , 11/23/16) Reported Meds & Prescriptions Reported Meds & Active Scripts Active Eliquis (Apixaban) 5 Mg Tab 5 Mg PO DAILY 30 Days Reported Diltiazem (Diltiazem HCl) 30 Mg Tab 30 Mg PO QID Lisinopril 10 Mg Tab 10 Mg PO DAILY Metoprolol Tartrate 50 Mg Tab 50 Mg PO BID Calcium + D3 (Calcium Carbonate-Cholecalciferol) 600-200 Mg-Unit Tab 1 Tab PO DAILY Vitamin D-1000 (Cholecalciferol) 1,000 Unit Tab 1,000 Units PO DAILY Simvastatin 40 Mg Tab 40 Mg PO HS Review of Systems Except as stated in HPI: all other systems reviewed are Neg Physical Exam Narrative GENERAL: Well-developed well-nourished female in no acute distress SKIN: Warm and dry. HEAD: Atraumatic. Normocephalic. EYES: Pupils equal and round. No scleral icterus. No injection or drainage. ENT: No nasal bleeding or discharge. Mucous membranes pink and moist. NECK: Trachea midline. No JVD. CARDIOVASCULAR: Irregular rate and rhythm. No murmur appreciated. RESPIRATORY: No accessory muscle use. Clear to auscultation. Breath sounds equal bilaterally. GASTROINTESTINAL: Abdomen soft, non-tender, nondistended. Hepatic and splenic margins not palpable. MUSCULOSKELETAL: No obvious deformities. 1+ pitting tibial edema bilaterally. Negative Homans bilaterally. NEUROLOGICAL: Awake and alert. No obvious cranial nerve deficits. Motor grossly within normal limits. Normal speech. PSYCHIATRIC: Appropriate mood and affect; insight and judgment normal. Data Data Last Documented VS Vital Signs Date Time Temp Pulse Resp B/P Pulse Ox O2 Delivery O2 Flow Rate FiO2 12/14/16 16:12 93 18 160/65 98 Room Air 12/14/16 14:04 98.1 Orders Electrocardiogram (12/14/16 ) Basic Metabolic Panel (Bmp) (12/14/16 14:34) Complete Blood Count With Diff (12/14/16 14:34) Magnesium (Mg) (12/14/16 14:34) Ecg Monitoring (12/14/16 14:34) Bilateral Bp Monitoring (12/14/16 14:34) Iv Access Insert/Monitor (12/14/16 14:34) Oximetry (12/14/16 14:34) Oxygen Administration (12/14/16 14:34) Sodium Chloride 0.9% Flush (Ns Flush) (12/14/16 14:45) Diltiazem Inj (Cardizem Inj) (12/14/16 15:30) B-Type Natriuretic Peptide (2/3/17 16:58) Chest, Single Ap (12/14/16 ) Code Status (12/14/16 16:58) Vital Signs (Adult) Q4H (12/14/16 16:58) Activity Bed Rest (12/14/16 16:58) Investment Consultant / Telemetry .CONTINUOUS (12/14/16 16:58) Intake + Output CHRISTIANA.QSHIFT (12/14/16 16:58) Diet Heart Healthy (12/14/16 Dinner) Cbc No Diff, Includes Plts (12/15/16 06:00) Thyroid Stimulating Hormone (12/14/16 16:58) Prothrombin Time / Inr (Pt) (12/15/16 06:00) Troponin I (12/14/16 16:58) Troponin I (12/14/16 22:58) Basic Metabolic Panel (Bmp) (12/15/16 06:00) Resp Oxygen Shahzad C Titrat 1-4 L (12/14/16 16:58) Magnesium (Mg) (12/15/16 06:00) Place In Observation (12/14/16 ) Admit Order (Ed Use Only) (12/14/16 17:00) Labs Laboratory Tests Test 12/14/16 14:45 White Blood Count 11.5 TH/MM3 Red Blood Count 4.39 MIL/MM3 Hemoglobin 12.9 GM/DL Hematocrit 40.0 % Mean Corpuscular Volume 91.1 FL Mean Corpuscular Hemoglobin 29.5 PG Mean Corpuscular Hemoglobin 32.4 % Concent Red Cell Distribution Width 13.5 % Platelet Count 275 TH/MM3 Mean Platelet Volume 9.3 FL Neutrophils (%) (Auto) 70.0 % Lymphocytes (%) (Auto) 18.0 % Monocytes (%) (Auto) 7.7 % Eosinophils (%) (Auto) 3.8 % Basophils (%) (Auto) 0.5 % Neutrophils # (Auto) 8.0 TH/MM3 Lymphocytes # (Auto) 2.1 TH/MM3 Monocytes # (Auto) 0.9 TH/MM3 Eosinophils # (Auto) 0.4 TH/MM3 Basophils # (Auto) 0.1 TH/MM3 CBC Comment DIFF FINAL Differential Comment Sodium Level 141 MEQ/L Potassium Level 3.9 MEQ/L Chloride Level 109 MEQ/L Carbon Dioxide Level 25.3 MEQ/L Anion Gap 7 MEQ/L Blood Urea Nitrogen 15 MG/DL Creatinine 1.04 MG/DL Estimat Glomerular Filtration 50 ML/MIN Rate Random Glucose 124 MG/DL Calcium Level 8.9 MG/DL Magnesium Level 1.8 MG/DL MDM Medical Decision Making Medical Screen Exam Complete: Yes Emergency Medical Condition: Yes Medical Record Reviewed: Yes Differential Diagnosis Atrial fibrillation with RVR, sinus tachycardia, SVT, PE Narrative Course 86-year-old female who is admitted with new onset atrial fibrillation last month presents with tachycardia today. Her heart rate was in the 130s at home despite being compliant with her metoprolol, diltiazem at home. On initial examination her heart rate is in the 110s to 120s initially. She has no chest pain, shortness of breath. She does have lower extremity 1+ tibial edema bilaterally. The patient was given a 10 mg dose of diltiazem. Her heart rate came down to the 90s. IV established, basic lab work, EKG ordered and interpreted. Discussed with my attending who agrees with plan of care. Discussed with automobile body repair supervisor Dr. Riggins longwall headgate operator for Dr. Roblero would like the patient admitted for observation. Discussed with Dr. Claire who is agreeable. Procedures EKG Prior to Arrival: Yes Diagnosis Primary Impression: Atrial fibrillation with RVR Admitting Information Admitting Physician Requests: Observation Tadeo Moseley Dec 14, 2016 14:47
[2016-12-14] MEDS ORDERED: DILTIAZEM HCL 25 MG/5 ML VIAL IV ONE (15:30)
[2016-12-14 15:35] LABS: BASOPHIL # 0.1 TH/MM3 (0-0.2); BASOPHIL % 0.5 % (0.0-2.0); EOSINOPHIL # 0.4 TH/MM3 (0-0.4); EOSINOPHIL % 3.8 % (0.0-4.0); HEMO FLAGS DIFF FINAL; LYMPHOCYTE # 2.1 TH/MM3 (1.0-4.8); MEAN CELL VOLUME 91.1 FL (80.0-100.0); MEAN CORPUSCULAR HEMOGLOBIN 29.5 PG (27.0-34.0); MEAN CORPUSCULAR HGB CONC 32.4 % (32.0-36.0); MONO % 7.7 % (0.0-8.0); PLATELET COUNT 275 TH/MM3 (150-450); RED BLOOD COUNT 4.39 MIL/MM3 (4.00-5.30); RED CELL DISTRIBUTION WIDTH 13.5 % (11.6-17.2); WHITE BLOOD COUNT 11.5 TH/MM3 (4.0-11.0)
[2016-12-14] MEDS ORDERED: DILT30TA PO (15:39)
[2016-12-14] MEDS ORDERED: LISI10TA3 PO (15:39)
[2016-12-14] MEDS ORDERED: METO50TA PO (15:39)
[2016-12-14 16:12] LABS: BICARBONATE 25.3 MEQ/L (21.0-32.0); MAGNESIUM 1.8 MG/DL (1.5-2.5); POTASSIUM 3.9 MEQ/L (3.5-5.1)
--- NOTE | 2016-12-14 17:23 | HHI.HP ---
[facility] Lakia Hall MD Admission Diagnosis atrial fibrillation with RVR Diagnoses: Chief Complaint: Tachycardia Travel History International Travel<30 Days: No Contact w/Intl Traveler <30 Da: No Traveled to Known Affected Are: No History of Present Illness This is an 86-year-old female with history of hypertension, recently diagnosed atrial fibrillation presenting with tachycardia. Of note, patient was admitted from November 23 to November 26 for atrial fibrillation. Patient an echocardiogram with ejection fraction of 40-45%. She was discharged on Cardizem , and eliquis. Patient followed up with Dr. Hernández about a week ago when patient was started on metoprolol. She also followed up with her primary care physician, she was started on lisinopril and hydrochlorothiazide which she did not get the prescription for. Today, during a home healthcare nurse visit, he was found that her heart rate is in the 130s. Hence the patient was alarmed and decided to go to the hospital. Patient denies any chest pain, palpitations , shortness of breath, nausea, vomiting or dyspnea on exertion. She however has been having increasing lower extremity swelling for the last 3 days. Review of Systems ROS Limitations: Other (Not in distress, well-nourished, looks stated age) Past Family Social History Past Medical History hypertension dyslipidemia Afib Past Surgical History Reported Medications Eliquis (Apixaban) 5 Mg Tab 5 Mg PO DAILY 30 Days Diltiazem (Diltiazem HCl) 30 Mg Tab 30 Mg PO QID Lisinopril 10 Mg Tab 10 Mg PO DAILY Metoprolol Tartrate 50 Mg Tab 50 Mg PO BID Calcium + D3 (Calcium Carbonate-Cholecalciferol) 600-200 Mg-Unit Tab 1 Tab PO DAILY Vitamin D-1000 (Cholecalciferol) 1,000 Unit Tab 1,000 Units PO DAILY Simvastatin 40 Mg Tab 40 Mg PO HS Allergies: Coded Allergies: No Known Allergies (Unverified , 11/23/16) Family History Mother of CVA Social History Patient denies smoking, significant alcohol intake or use of any illicit drugs. Physical Exam Vital Signs Vital Signs Date Time Temp Pulse Resp B/P Pulse Ox O2 Delivery O2 Flow Rate FiO2 12/14/16 16:12 93 18 160/65 98 Room Air 12/14/16 15:39 124 18 160/94 98 Room Air 12/14/16 15:39 98 Room Air 12/14/16 15:39 98 Room Air 12/14/16 14:25 110 18 Room Air 12/14/16 14:04 98.1 116 16 160/91 93 Room Air Physical Exam GENERAL: Not in acute distress, well-nourished. HEAD: Atraumatic. Normocephalic. No temporal or scalp tenderness. EYES: PERRL, full EOMs, no jaundice, nonicteric, pink conjunctivae without injection, moist mucosa ENT: Nose without bleeding, purulent drainage. Throat without erythema, tonsillar hypertrophy or exudate. Uvula midline. Airway patent. NECK: Trachea midline, no mass, no obvious thyromegaly. No JVD or lymphadenopathy. CARDIOVASCULAR: Tachycardic, regular rhythm, no murmurs. RESPIRATORY: Bilateral rhonchi and crackles at bases, no wheezing. GASTROINTESTINAL: Abdomen soft, normal bowel sounds, non-tender, nondistended. No hepato-splenomegaly or palpable mass. No guarding. PAULETTE and exam deferred. MUSCULOSKELETAL: Extremities without clubbing, cyanosis, 2+ lower extremity edema. No calf tenderness, distal pulses 2+. INTEGUMENTARY: Warm and dry, no rash of generalized distribution. NEUROLOGICAL: Awake, alert, oriented 3. No obvious cranial nerve deficits. Moves all 4 extremities, muscle strength testing 5 over 5. Motor and sensory grossly within normal limits. .Supple neck, no meningeal signs. Grossly negative cerebellar examination. No focal neurologic deficits. PSYCHIATRIC: Normal mood, appropriate affect. Laboratory Laboratory Tests Test 12/14/16 14:45 White Blood Count 11.5 Red Blood Count 4.39 Hemoglobin 12.9 Hematocrit 40.0 Mean Corpuscular Volume 91.1 Mean Corpuscular Hemoglobin 29.5 Mean Corpuscular Hemoglobin 32.4 Concent Red Cell Distribution Width 13.5 Platelet Count 275 Mean Platelet Volume 9.3 Neutrophils (%) (Auto) 70.0 Lymphocytes (%) (Auto) 18.0 Monocytes (%) (Auto) 7.7 Eosinophils (%) (Auto) 3.8 Basophils (%) (Auto) 0.5 Neutrophils # (Auto) 8.0 Lymphocytes # (Auto) 2.1 Monocytes # (Auto) 0.9 Eosinophils # (Auto) 0.4 Basophils # (Auto) 0.1 CBC Comment DIFF FINAL Differential Comment Sodium Level 141 Potassium Level 3.9 Chloride Level 109 Carbon Dioxide Level 25.3 Anion Gap 7 Blood Urea Nitrogen 15 Creatinine 1.04 Estimat Glomerular Filtration 50 Rate Random Glucose 124 Calcium Level 8.9 Magnesium Level 1.8 Result Diagram: 12/14/16 1445 12/14/16 1445 Assessment and Plan Assessment and Plan This is an 86-year-old female with history of hypertension, recently diagnosed atrial fibrillation, presenting to the hospital with atrial fibrillation with rapid ventricular rate Atrial fibrillation, RVR-resume patient's metoprolol, increase Cardizem dose, continue eliquis. Consult cardiology. Check TSH, trop, EKG. Hypertension-continue lisinopril and metoprolol. Congestive heart failure exacerbation, systolic-check BNP, check chest x-ray, patient clinically has heart failure based on pulmonary exam, start Lasix, hold hydrochlorothiazide for now. Continue lisinopril, continue statins. DVT prophylaxis: On eliquis. Eddie Claire MD Dec 14, 2016 17:23
[2016-12-14] MEDS ORDERED: FUROSEMIDE 40 MG/4 ML VIAL IV PUSH SCH (18:00)
--- NOTE | 2016-12-14 18:12 | RADRPT ---
EXAM DATE/TIME: 12/14/2016 18:02 [facility] COMPARISON: CHEST SINGLE AP, November 23, 2016, 13:57. INDICATIONS : Eval heart and lungs. MEDICAL HISTORY : Hypertension. A-Fib SURGICAL HISTORY : None. ENCOUNTER: Initial ACUITY: 1 day PAIN SCORE: 0/10 LOCATION: chest FINDINGS: Single AP view of the chest. Inferior right lower lobe consolidation. Left lung clear. Cardiomediasti nal silhouette a normal width. No evidence of pleural effusion or pneumothorax. CONCLUSION: Right lower lobe consolidation. Phong Baker MD on December 14, 2016 at 18:10 Board Certified Radiologist. This report was verified electronically.
[2016-12-14] MEDS: DILTIAZEM HCL 60 MG TAB PO SCH ×2 (18:25→22:02)
--- NOTE | 2016-12-14 18:49 | MB ---
cc: SUMMER CAMPOS MD DATE OF CONSULTATION: 12/14/2016 REASON FOR CONSULTATION Atrial fibrillation with rapid ventricular rate. HISTORY OF PRESENT ILLNESS Ms. Del Castillo is an 86-year-old female patient of Dr. Roblero who does indeed have a history of atrial fibrillation. She reports her heart rate yesterday was good in the 60s and then this morning her heart rate continued to decline throughout the day despite taking her medications. She subsequently presented in the emergency room. She denies any cardiac complaints to me but does note some lower extremity edema over the last couple days. PAST MEDICAL HISTORY Significant for - 1. Hypertension. 2. Hyperlipidemia. 3. Atrial fibrillation. CURRENT MEDICATIONS 1. Eliquis. 2. Diltiazem 30 mg q.i.d. 3. Lisinopril 10 mg a day. 4. Metoprolol 50 mg b.i.d. 5. The patient is also on Simvastatin 40 mg q.h.s. ALLERGIES NO KNOWN DRUG ALLERGIES. FAMILY HISTORY Positive for CVA. SOCIAL HISTORY The patient does not drink or smoke. REVIEW OF SYSTEMS Except as mentioned in the HPI, all 12 systems are negative. PHYSICAL EXAMINATION VITAL SIGNS: Heart rate 120, respiratory rate 18 and blood pressure 160/94. GENERAL: She is a well-appearing elderly female who is in no apparent distress. NECK: Her neck is free from JVD. LUNGS: The lungs have some scattered wheezing. CARDIOVASCULAR EXAMINATION: She has an irregularly irregular tachycardic rhythm. No rubs or gallops are appreciated. ABDOMEN: The abdomen is soft. EXTREMITIES: The extremities do have mild edema. Telemetry shows atrial fibrillation with rapid ventricular rate. LABORATORY VALUES Significant for a white count of 11.5 and a creatinine of 1.04. IMPRESSIONS Atrial fibrillation - The patient did have some RVR despite taking her medications. She responded nicely to the IV Cardizem in the emergency room. I would like to have her titrated reasonably well on p.o. medications prior to considering discharge. She is on Eliquis for anticoagulation. Hyperlipidemia - Consideration should be given towards changing the simvastatin to lower the incidence of potential side effects. Summer Campos M.D. MELISSA/ANN /6:06 PM /6:34 PM
[2016-12-14] MEDS: METOPROLOL TARTRATE 50 MG TAB PO SCH (22:02)
[2016-12-14] MEDS: PRAVASTATIN SOD 80 MG TAB PO SCH (22:02)
[2016-12-15] VITALS (10 sets, daily range): BP systolic 97–123; BP diastolic 52–72; PULSE 78–114; RESP 16–20; TEMP 95.8–97.6; O2SAT 93–96
[2016-12-15 03:30] LABS: HEMATOCRIT 36.9 % (35.0-46.0); MEAN CELL VOLUME 89.6 FL (80.0-100.0); MEAN CORPUSCULAR HEMOGLOBIN 29.7 PG (27.0-34.0); MEAN CORPUSCULAR HGB CONC 33.1 % (32.0-36.0); PLATELET COUNT 239 TH/MM3 (150-450); RED BLOOD COUNT 4.12 MIL/MM3 (4.00-5.30); RED CELL DISTRIBUTION WIDTH 13.1 % (11.6-17.2); REVIEW FLAG FINAL
[2016-12-15 03:41] LABS: INTERNATIONAL NORMALIZED RATIO 1.1 RATIO; PROTHROMBIN TIME - PATIENT 12.1 SEC (9.8-11.6)
[2016-12-15 03:50] LABS: BICARBONATE 31.8 MEQ/L (21.0-32.0); MAGNESIUM 1.7 MG/DL (1.5-2.5); POTASSIUM 3.9 MEQ/L (3.5-5.1)
--- NOTE | 2016-12-15 08:53 | HHI.PR ---
Subjective Remarks Follow-up for palpitations No palpitations, shortness of breath at baseline, coughing in the morning otherwise none. No significant sputum production. Afebrile. Leukocytosis worsening. Objective Vitals Vital Signs Date Time Temp Pulse Resp B/P Pulse Ox O2 Delivery O2 Flow Rate FiO2 12/15/16 04:29 90 12/15/16 03:45 97.5 80 16 105/69 93 12/15/16 00:19 97.6 83 20 106/52 96 12/15/16 00:00 78 12/14/16 22:03 78 18 114/80 94 Room Air 12/14/16 19:31 106 18 135/81 98 Room Air 12/14/16 17:30 134 18 132/87 97 Room Air 12/14/16 16:30 108 18 149/74 98 Room Air 12/14/16 16:12 93 18 160/65 98 Room Air 12/14/16 15:39 124 18 160/94 98 Room Air 12/14/16 15:39 98 Room Air 12/14/16 15:39 98 Room Air 12/14/16 14:25 110 18 Room Air 12/14/16 14:04 98.1 116 16 160/91 93 Room Air Result Diagram: 12/15/16 0313 12/15/16 0313 Objective Remarks GENERAL: Not in acute distress, well-nourished. HEAD: Atraumatic. Normocephalic. No temporal or scalp tenderness. EYES: PERRL, full EOMs, no jaundice, nonicteric, pink conjunctivae without injection, moist mucosa ENT: Nose without bleeding, purulent drainage. Throat without erythema, tonsillar hypertrophy or exudate. Uvula midline. Airway patent. NECK: Trachea midline, no mass, no obvious thyromegaly. No JVD or lymphadenopathy. CARDIOVASCULAR: Regular rate, irregular rhythm. No murmurs. RESPIRATORY: Crackles right base, decreased breath sounds bilateral bases. No wheezing. GASTROINTESTINAL: Abdomen soft, normal bowel sounds, non-tender, nondistended. No hepato-splenomegaly or palpable mass. No guarding. PAULETTE and exam deferred. MUSCULOSKELETAL: Extremities without clubbing, cyanosis, 1+ lower extremity edema-markedly improved. No calf tenderness, distal pulses 2+. INTEGUMENTARY: Warm and dry, no rash of generalized distribution. NEUROLOGICAL: Awake, alert, oriented 3. No obvious cranial nerve deficits. Moves all 4 extremities, muscle strength testing 5 over 5. Motor and sensory grossly within normal limits. .Supple neck, no meningeal signs. Grossly negative cerebellar examination. No focal neurologic deficits. PSYCHIATRIC: Normal mood, appropriate affect. A/P Assessment and Plan This is an 86-year-old female with history of hypertension, recently diagnosed atrial fibrillation, presenting to the hospital with atrial fibrillation with rapid ventricular rate Atrial fibrillation, RVR- continue metoprolol and higher dose of Cardizem. Continue eliquis. Cardiology following, continue to titrate Cardizem orally. TSH within normal limits. Troponin negative 2. Possible hospital-acquired pneumonia-worsening leukocytosis, patient has a cough but nonproductive, chest x-ray personally reviewed showed right lower lobe consolidation. Patient recently in the hospital, possible healthcare associated pneumonia, start cefepime and azithromycin. Repeat chest x-ray this afternoon. Recheck CBC tomorrow Hypertension-continue lisinopril and metoprolol. Congestive heart failure exacerbation, systolic- BNP elevated, chest x-ray as above. Continue Lasix, decrease dose, switch to oral with mild creatinine elevation.. Monitor urine output. Discussed with RN. Continue lisinopril and statin. Recheck BMP tomorrow. DVT prophylaxis: On eliquis. Discharge Planning Admit as inpatient. Eddie Claire MD Dec 15, 2016 08:53
[2016-12-15] MEDS: METOPROLOL TARTRATE 50 MG TAB PO SCH ×2 (09:00→21:37)
[2016-12-15] MEDS: DILTIAZEM HCL 60 MG TAB PO SCH (10:15)
[2016-12-15] MEDS: LISINOPRIL 10 MG TAB PO SCH (10:15)
[2016-12-15] MEDS: FUROSEMIDE 20 MG TAB PO SCH (10:15)
[2016-12-15] MEDS: APIXABAN 5 MG TABLET PO SCH (10:15)
[2016-12-15] MEDS: CEFEPIME INJ 1,000 MG in SODIUM CHLORIDE 0.9% INJ 100 ML IV SCH ×2 (10:16→18:09)
--- NOTE | 2016-12-15 10:39 | PD.CARD.PN ---
Subjective Subjective Remarks Pt without complaints Objective Medications Current Medications Medications (Trade) Dose Ordered Sig/Lai Route Start Time Stop Time Status Last Admin (NS Flush) 2 ml UNSCH PRN IVF 12/14/16 14:45 (Cardizem) 60 mg QID PO 12/14/16 18:00 12/15/16 10:15 (Eliquis) 5 mg DAILY PO 12/15/16 09:00 12/15/16 10:15 (Prinivil) 10 mg DAILY PO 12/15/16 09:00 12/15/16 10:15 (Lopressor) 50 mg BID PO 12/14/16 21:00 12/14/16 22:02 (Pravachol) 80 mg HS PO 12/14/16 21:00 12/14/16 22:02 Furosemide 20 mg 20 mg DAILY PO 12/15/16 09:00 12/15/16 10:15 (Maxipime Inj/NS Inj) 100 ml @ 200 mls/hr Q8H IV 12/15/16 09:00 12/15/16 10:16 Vital Signs / I&O Vital Signs Date Time Temp Pulse Resp B/P Pulse Ox O2 Delivery O2 Flow Rate FiO2 12/15/16 08:00 95.8 104 18 109/72 95 12/15/16 04:29 90 12/15/16 03:45 97.5 80 16 105/69 93 12/15/16 00:19 97.6 83 20 106/52 96 12/15/16 00:00 78 12/14/16 22:03 78 18 114/80 94 Room Air 12/14/16 19:31 106 18 135/81 98 Room Air 12/14/16 17:30 134 18 132/87 97 Room Air 12/14/16 16:30 108 18 149/74 98 Room Air 12/14/16 16:12 93 18 160/65 98 Room Air 12/14/16 15:39 124 18 160/94 98 Room Air 12/14/16 15:39 98 Room Air 12/14/16 15:39 98 Room Air 12/14/16 14:25 110 18 Room Air 12/14/16 14:04 98.1 116 16 160/91 93 Room Air Physical Exam GENERAL: Well developed, well nourished. No acute distress. HEENT: Jugular venous pressure is normal. CHEST: Lungs clear to auscultation bilaterally. Unlabored respiratory effort. CARDIAC: irregular rate and rhythm without S3, S4, or murmur. ABDOMEN: Soft, nontender, no hepatosplenomegaly. Bowel sounds present. EXTREMITIES: No clubbing, cyanosis, or edema. Laboratory Laboratory Tests Test 12/14/16 12/14/16 12/15/16 12/15/16 14:45 18:32 01:13 03:13 White Blood Count 11.5 TH/MM3 14.0 TH/MM3 Red Blood Count 4.39 MIL/MM3 4.12 MIL/MM3 Hemoglobin 12.9 GM/DL 12.2 GM/DL Hematocrit 40.0 % 36.9 % Mean Corpuscular Volume 91.1 FL 89.6 FL Mean Corpuscular Hemoglobin 29.5 PG 29.7 PG Mean Corpuscular Hemoglobin 32.4 % 33.1 % Concent Red Cell Distribution Width 13.5 % 13.1 % Platelet Count 275 TH/MM3 239 TH/MM3 Mean Platelet Volume 9.3 FL 8.6 FL Neutrophils (%) (Auto) 70.0 % Lymphocytes (%) (Auto) 18.0 % Monocytes (%) (Auto) 7.7 % Eosinophils (%) (Auto) 3.8 % Basophils (%) (Auto) 0.5 % Neutrophils # (Auto) 8.0 TH/MM3 Lymphocytes # (Auto) 2.1 TH/MM3 Monocytes # (Auto) 0.9 TH/MM3 Eosinophils # (Auto) 0.4 TH/MM3 Basophils # (Auto) 0.1 TH/MM3 CBC Comment DIFF FINAL Differential Comment Sodium Level 141 MEQ/L 144 MEQ/L Potassium Level 3.9 MEQ/L 3.9 MEQ/L Chloride Level 109 MEQ/L 107 MEQ/L Carbon Dioxide Level 25.3 MEQ/L 31.8 MEQ/L Anion Gap 7 MEQ/L 5 MEQ/L Blood Urea Nitrogen 15 MG/DL 17 MG/DL Creatinine 1.04 MG/DL 1.13 MG/DL Estimat Glomerular Filtration 50 ML/MIN 45 ML/MIN Rate Random Glucose 124 MG/DL 176 MG/DL Calcium Level 8.9 MG/DL 9.1 MG/DL Magnesium Level 1.8 MG/DL 1.7 MG/DL B-Type Natriuretic Peptide 613 PG/ML Troponin I LESS THAN 0.02 LESS THAN 0.02 NG/ML NG/ML Thyroid Stimulating Hormone 1.610 uIU/ML 3rd Gen Prothrombin Time 12.1 SEC Prothromb Time International 1.1 RATIO Ratio Imaging Last 72 hours Impressions Chest X-Ray 12/14/16 0000 Signed Impressions: Service Date/Time: Wednesday, December 14, 2016 18:02 - CONCLUSION: Right lower lobe consolidation. Phong Baker MD Assessment and Plan Assessment and Plan AF- tele not hooked up =>fair rate control on present meds at 110 bpm -change to cardizem CD 240 a day with short acting PRN, and scheduled metoprolol -on eliquis CHF- reports better today, edema resolved -pt reports recent normal nuc stress at office Pneumonia- on antibiotics per primary team Rebecca Diego MD Dec 15, 2016 10:39
[2016-12-15] MEDS ORDERED: DILTIAZEM HCL 30 MG TAB PO PRN (10:45)
[2016-12-15] MEDS: DILTIAZEM-CD 240 MG CAP ER PO SCH (11:00)
--- NOTE | 2016-12-15 16:45 | RADRPT ---
EXAM DATE/TIME: 12/15/2016 15:20 [facility] COMPARISON: No previous studies available for comparison. INDICATIONS : Shortness of breath. MEDICAL HISTORY : Hypertension. A-Fib. SURGICAL HISTORY : None. ENCOUNTER: Subsequent ACUITY: 2 days PAIN SCORE: 0/10 LOCATION: Bilateral chest FINDINGS: PA and lateral views of the chest demonstrate cardiomegaly. Small pleural effusions. Mild basilar air space disease. No pneumothorax. CONCLUSION: 1. Cardiomegaly with small pleural effusions and mild basilar airspace disease. Emerson De La Garza MD on December 15, 2016 at 16:42 Board Certified Radiologist. This report was verified electronically.
[2016-12-15] MEDS: PRAVASTATIN SOD 80 MG TAB PO SCH (21:37)
[2016-12-16] VITALS: BP 111/71; PULSE 92; RESP 18; TEMP 97; O2SAT 97
[2016-12-16] MEDS: CEFEPIME INJ 1,000 MG in SODIUM CHLORIDE 0.9% INJ 100 ML IV SCH (00:28)
[2016-12-16 04:00] VITALS: PULSE 107
[2016-12-16 05:23] LABS: BICARBONATE 31.3 MEQ/L (21.0-32.0); POTASSIUM 3.5 MEQ/L (3.5-5.1)
[2016-12-16 07:40] VITALS: BP 124/88; PULSE 110; RESP 16; TEMP 97.2; O2SAT 95
[2016-12-16] MEDS ORDERED: CEFT500T3 PO (07:52)
[2016-12-16] MEDS ORDERED: FURO20TA PO (07:52)
[2016-12-16] MEDS ORDERED: CARD240C6 PO (07:52)
--- NOTE | 2016-12-16 07:53 | HHI.DS ---
Discharge Summary Admission Date Dec 15, 2016 at 08:55 Discharge Date: Dec 16, 2016 Admitting Diagnosis atrial fibrillation with RVR (1) Atrial fibrillation with RVR ICD Code: I48.91 Diagnosis: Principal (2) Cardiomyopathy ICD Code: I42.9 Diagnosis: Secondary (3) HCAP (healthcare-associated pneumonia) ICD Code: J18.9 Diagnosis: Principal Procedures None Brief History - From Admission This is an 86-year-old female with history of hypertension, recently diagnosed atrial fibrillation presenting with tachycardia. Of note, patient was admitted from November 23 to November 26 for atrial fibrillation. Patient an echocardiogram with ejection fraction of 40-45%. She was discharged on Cardizem , and eliquis. Patient followed up with Dr. Hernández about a week ago when patient was started on metoprolol. She also followed up with her primary care physician, she was started on lisinopril and hydrochlorothiazide which she did not get the prescription for. Today, during a home healthcare nurse visit, he was found that her heart rate is in the 130s. Hence the patient was alarmed and decided to go to the hospital. Patient denies any chest pain, palpitations , shortness of breath, nausea, vomiting or dyspnea on exertion. She however has been having increasing lower extremity swelling for the last 3 days. CBC/BMP: 12/15/16 0313 12/16/16 0415 Significant Findings Laboratory Tests Test 12/14/16 12/14/16 12/15/16 12/15/16 14:45 18:32 01:13 03:13 White Blood Count 11.5 TH/MM3 14.0 TH/MM3 (4.0-11.0) (4.0-11.0) Neutrophils # (Auto) 8.0 TH/MM3 (1.8-7.7) Chloride Level 109 MEQ/L (98-107) Creatinine 1.04 MG/DL 1.13 MG/DL (0.50-1.00) (0.50-1.00) Estimat Glomerular Filtration 50 ML/MIN (>89) 45 ML/MIN (>89) Rate Random Glucose 124 MG/DL 176 MG/DL (74-106) (74-106) B-Type Natriuretic Peptide 613 PG/ML (0-100) Troponin I LESS THAN 0.02 LESS THAN 0.02 NG/ML NG/ML (0.02-0.05) (0.02-0.05) Prothrombin Time 12.1 SEC (9.8-11.6) Test 12/16/16 04:15 Estimat Glomerular Filtration 54 ML/MIN (>89) Rate Random Glucose 109 MG/DL (74-106) Imaging Last Impressions Chest X-Ray 12/15/16 1500 Signed Impressions: Service Date/Time: Thursday, December 15, 2016 15:20 - CONCLUSION: 1. Cardiomegaly with small pleural effusions and mild basilar airspace disease. Emerson De La Garza MD PE at Discharge GENERAL: Not in acute distress, well-nourished. HEAD: Atraumatic. Normocephalic. No temporal or scalp tenderness. EYES: PERRL, full EOMs, no jaundice, nonicteric, pink conjunctivae without injection, moist mucosa ENT: Nose without bleeding, purulent drainage. Throat without erythema, tonsillar hypertrophy or exudate. Uvula midline. Airway patent. NECK: Trachea midline, no mass, no obvious thyromegaly. No JVD or lymphadenopathy. CARDIOVASCULAR: Regular rate, irregular rhythm. No murmurs. RESPIRATORY: Crackles right base, decreased breath sounds bilateral bases. No wheezing. GASTROINTESTINAL: Abdomen soft, normal bowel sounds, non-tender, nondistended. No hepato-splenomegaly or palpable mass. No guarding. PAULETTE and exam deferred. MUSCULOSKELETAL: Extremities without clubbing, cyanosis, 1+ lower extremity edema-markedly improved. No calf tenderness, distal pulses 2+. INTEGUMENTARY: Warm and dry, no rash of generalized distribution. NEUROLOGICAL: Awake, alert, oriented 3. No obvious cranial nerve deficits. Moves all 4 extremities, muscle strength testing 5 over 5. Motor and sensory grossly within normal limits. .Supple neck, no meningeal signs. Grossly negative cerebellar examination. No focal neurologic deficits. PSYCHIATRIC: Normal mood, appropriate affect. Pt update on day of discharge Patient feels a lot better, no chest pain, no shortness of breath, still coughing but nonproductive. Afebrile. Occasional palpitations yesterday but better today. Heart rate in the low 100s. Hospital Course This is an 86-year-old female with history of hypertension, recently diagnosed atrial fibrillation, presenting to the hospital with atrial fibrillation with rapid ventricular rate. Upon admission, the patient was restarted on her dose of metoprolol and Cardizem. Troponin negative 2. However heart rate remained elevated, patient's Cardizem was increased after consultation with cardiology and switched to long-acting. Patient was also found to have likely hospital- acquired pneumonia with leukocytosis, cough, chest x-ray showing right lower lobe consolidation. The patient was started on cefepime and azithromycin. Patient markedly improved after 2 days. Antibiotic switched to Ceftin to finish 1 week of treatment. Patient will be discharged on a higher dose of Cardizem. She was also started on Lasix for congestive heart failure exacerbation. She will follow Up with her primary care physician and cardiology in 1 week. Pt Condition on Discharge: Good Discharge Disposition: Discharge Home Discharge Time: > 30 minutes Discharge Instructions DIET: Follow Instructions for: Heart Healthy Diet Activities you can perform: Regular-No Restrictions Follow up Referrals: Cardiology - 2-3 Days with Deni Roblero MD PCP Follow-up - 1 Week New Medications: Cefuroxime (Ceftin) 500 Mg Tab 500 MG PO Q12HR bronchopneumonia #6 TAB Diltiazem CD 24 HR (Cardizem CD 24 HR) 240 Mg Caper 240 MG PO DAILY afib #30 CAP Furosemide (Furosemide) 20 Mg Tab 20 MG PO DAILY edema #30 TAB Continued Medications: Apixaban (Eliquis) 5 Mg Tab 5 MG PO DAILY a-fib Days 30 Ref 0 TAB Calcium Carbonate-Cholecalciferol (Calcium + D3) 600-200 Mg-Unit Tab 1 TAB PO DAILY TAB Cholecalciferol (Vitamin D-1000) 1,000 Unit Tab 1000 UNITS PO DAILY Nutritional Supplement Ref 0 BOTTLE Lisinopril (Lisinopril) 10 Mg Tab 10 MG PO DAILY #30 Ref 0 TAB Metoprolol Tartrate (Metoprolol Tartrate) 50 Mg Tab 50 MG PO BID #60 Ref 0 TAB Simvastatin (Simvastatin) 40 Mg Tab 40 MG PO HS Cholesterol Management Ref 0 TAB Discontinued Medications: Diltiazem (Diltiazem) 30 Mg Tab 30 MG PO QID Angina #120 Ref 0 TAB Eddie Claire MD Dec 16, 2016 07:53 Cholecalciferol (Vitamin D-1000) 1,000 Unit Tab 1000 UNITS PO DAILY Nutritional Supplement Ref 0 BOTTLE Lisinopril (Lisinopril) 10 Mg Tab 10 MG PO DAILY #30 Ref 0 TAB Metoprolol Tartrate (Metoprolol Tartrate) 50 Mg Tab 50 MG PO BID #60 Ref 0 TAB Simvastatin (Simvastatin) 40 Mg Tab 40 MG PO HS Cholesterol Management Ref 0 TAB Discontinued Medications: Diltiazem (Diltiazem) 30 Mg Tab 30 MG PO QID Angina #120 Ref 0 TAB Eddie Claire MD Dec 16, 2016 07:53
[2016-12-16] MEDS: DILTIAZEM-CD 240 MG CAP ER PO SCH (08:11)
[2016-12-16] MEDS: APIXABAN 5 MG TABLET PO SCH (08:11)
[2016-12-16] MEDS: LISINOPRIL 10 MG TAB PO SCH (08:12)
[2016-12-16] MEDS: FUROSEMIDE 20 MG TAB PO SCH (08:12)
[2016-12-16] MEDS: METOPROLOL TARTRATE 50 MG TAB PO SCH (08:12)
[2016-12-16] MEDS ORDERED: CEFUROXIME AXETIL 500 MG TAB PO SCH (09:00)
--- NOTE | 2016-12-16 09:40 | PD.CARD.PN ---
Subjective Subjective Remarks Pt without complaint Objective Medications Current Medications Medications (Trade) Dose Ordered Sig/Lia Route Start Time Stop Time Status Last Admin (NS Flush) 2 ml UNSCH PRN IVF 12/14/16 14:45 (Eliquis) 5 mg DAILY PO 12/15/16 09:00 12/16/16 08:11 (Prinivil) 10 mg DAILY PO 12/15/16 09:00 12/16/16 08:12 (Lopressor) 50 mg BID PO 12/14/16 21:00 12/16/16 08:12 (Pravachol) 80 mg HS PO 12/14/16 21:00 12/15/16 21:37 (Lasix) 20 mg DAILY PO 12/15/16 09:00 12/16/16 08:12 (Cardizem Cd) 240 mg DAILY PO 12/15/16 11:00 12/16/16 08:11 (Cardizem) 30 mg QID PRN PO 12/15/16 10:45 (Ceftin) 500 mg Q12HR PO 12/16/16 09:00 Vital Signs / I&O Vital Signs Date Time Temp Pulse Resp B/P Pulse Ox O2 Delivery O2 Flow Rate FiO2 12/16/16 07:40 97.2 110 16 124/88 95 12/16/16 04:00 107 12/16/16 00:00 97.0 92 18 111/71 97 12/15/16 21:10 99 12/15/16 20:09 96 12/15/16 20:00 97.0 114 18 123/70 96 12/15/16 16:13 96.1 97 18 97/70 94 12/15/16 10:00 103 I/O 12/15/16 12/15/16 12/15/16 12/16/16 12/16/16 12/16/16 07:00 15:00 23:00 07:00 15:00 23:00 Intake Total 1400 ml 240 ml 540 ml Output Total 500 ml Balance 900 ml 240 ml 540 ml Intake Oral 1400 ml 240 ml 340 ml IV Total 200 ml Output Urine Total 500 ml # Voids 1 1 5 # Bowel Movements 0 0 Physical Exam GENERAL: Well developed, well nourished. No acute distress. HEENT: Jugular venous pressure is normal. CHEST: Lungs clear to auscultation bilaterally. Unlabored respiratory effort. CARDIAC: irregular rate and rhythm without S3, S4, or murmur. ABDOMEN: Soft, nontender, no hepatosplenomegaly. Bowel sounds present. EXTREMITIES: No clubbing, cyanosis, or edema. Laboratory Laboratory Tests Test 12/16/16 04:15 Sodium Level 142 MEQ/L Potassium Level 3.5 MEQ/L Chloride Level 104 MEQ/L Carbon Dioxide Level 31.3 MEQ/L Anion Gap 7 MEQ/L Blood Urea Nitrogen 18 MG/DL Creatinine 0.98 MG/DL Estimat Glomerular Filtration 54 ML/MIN Rate Random Glucose 109 MG/DL Calcium Level 8.5 MG/DL Imaging Last 72 hours Impressions Chest X-Ray 12/15/16 1500 Signed Impressions: Service Date/Time: Thursday, December 15, 2016 15:20 - CONCLUSION: 1. Cardiomegaly with small pleural effusions and mild basilar airspace disease. Emerson De La Garza MD Chest X-Ray 12/14/16 0000 Signed Impressions: Service Date/Time: Wednesday, December 14, 2016 18:02 - CONCLUSION: Right lower lobe consolidation. Phong Baker MD Assessment and Plan Assessment and Plan AF- am meds given early and HR well controlled around 90 bpm -on eliquis CHF- resolved, d/c lasix -pt reports recent normal nuc stress at office Pneumonia- on antibiotics per primary team Dispo-ok for d/c home, follow up in 7-10 days w/ Rebecca Humphrey MD Dec 16, 2016 09:39
[2016-12-16 11:00] VITALS: PULSE 89
[2016-12-16 11:41] VITALS: BP 140/83; PULSE 96; RESP 20; TEMP 97.6; O2SAT 93
--- NOTE | 2016-12-16 12:30 | EKG ---
Date Performed: 12/14/2016 Time Performed: 14:24:12 PTAGE: 86 years EKG: ATRIAL FIBRILLATION WITH RAPID VENTRICULAR RESPONSE NONSPECIFIC ST & T-WAVE ABNORMALITY Sin ce previous tracing, no significant change noted ABNORMAL ECG PREVIOUS TRACING : 11/23/2016 14.07 DOCTOR: Tony Kumar Interpretating Date/Time 12/16/2016 12:29:45
== END 2016-12-16 14:42 | disposition home or self-care (01) | DRG 291 ==
LOC: EDBD → NEPE 14:02 → NEDA 17:02 → NEPFCDU 23:47 → OBSVTOIN 12-15 08:55
PROVIDERS: ADMIT Hospitalist; ATTEND Hospitalist
DX: I11.0 Hypertensive heart disease with heart failure (principal); J18.9 Pneumonia, unspecified organism; I48.91 Unspecified atrial fibrillation; I42.9 Cardiomyopathy, unspecified; I50.23 Acute on chronic systolic (congestive) heart failure; E78.5 Hyperlipidemia, unspecified; Y95 Nosocomial condition; Z79.01 Long term (current) use of anticoagulants; Z82.3 Family history of stroke
CPT/HCPCS: 71010; 71020; 80048; 83735; 83880; 84443; 84484; 85025; 85027; 85610; 93005; 96374; G0378; J0692; J1940

== ENCOUNTER 2017-02-19 11:57 | Day surgery (SDC) | payer OTHER ==
--- NOTE | 2017-02-15 15:01 | MH ---
cc: REGINALDO RAJAN M.D. DATE OF ADMISSION: 02/19/2017 1928 HISTORY OF PRESENT ILLNESS The patient is a 86-year-old white female, followed in our office by Dr. Deni Roblero, with a history of paroxysmal atrial fibrillation, mild cardiomyopathy with ejection fraction of 40-45%, hyperlipidemia, hypertension, moderate mitral regurgitation who is now admitted for permanent pacemaker implantation. The patient underwent recent Holter monitoring which showed evidence for tachycardia/bradycardia syndrome, including episodes of atrial fibrillation with rapid ventricular response as well as pauses greater than 4 seconds in duration. Clinically the patient denies syncope, near-syncope, chest pain, shortness of breath, palpitations. PAST MEDICAL HISTORY 1. Paroxysmal atrial fibrillation diagnosed November 2016. 2. Mild cardiomyopathy with ejection fraction of 40-45% with moderate mitral regurgitation on echo 11/23/2016. 3. Chronic renal insufficiency. 4. Hyperlipidemia. 5. Hypertension. MEDICATION Cardiac medications: 1. Cardizem CD 240 mg daily. 2. Eliquis 5 mg b.i.d. 3. Furosemide 20 mg daily. 4. Lisinopril 2.5 mg daily. 5. Metoprolol 50 mg b.i.d. 6. Simvastatin 40 mg q.h.s. ALLERGIES FOSAMAX, NIASPAN, VOLTAREN, VYTORIN. FAMILY HISTORY Noncontributory. SOCIAL HISTORY The patient has never smoked cigarettes. There is no history of alcohol abuse. REVIEW OF SYSTEMS Review of systems as in the history of present illness, otherwise negative or noncontributory. PHYSICAL EXAMINATION VITAL SIGNS: Blood pressure 116/72 with a pulse of 100, respirations 15. GENERAL: She is a well-developed, well-nourished white female, in no acute distress. HEENT: Jugular venous pressure is normal. Carotid pulses are 2+ bilaterally and without bruits. CHEST: Examination of the chest reveals clear lung bermeo. CARDIAC: On cardiac examination she has an irregularly, irregular rhythm without S3 or murmur. ABDOMEN: On abdominal examination she has a soft, nontender abdomen. Bowel sounds are present. There is no definite hepatosplenomegaly. EXTREMITIES: Examination of the extremities reveals no clubbing, cyanosis or edema. 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 The patient has been recommended permanent pacemaker implantation by her primary social professionals Dr. Deni Roblero for the tachycardia bradycardia syndrome. The nature of a permanent pacemaker and the potential risks have been outlined. She agrees to proceed. PLAN Permanent pacemaker implantation on 02/19/2017, holding Eliquis 48 hours in advance. MD EM Cardozo/TLSukhdev /1:00 PM /2:51 PM CARLOS
[2017-02-19] VITALS (9 sets, daily range): BP systolic 118–160; BP diastolic 67–98; PULSE 70–128; RESP 16–18; TEMP 97.4–98.1; O2SAT 94–99
[~2017-02-19] VITALS: Ht 160 cm; Wt 68.0 kg
[~2017-02-19 11:57] MED LIST changes: +CARD240C6 PO; +CEFT500T3 PO; +FURO20TA PO; +LISI10TA3 PO; +METO50TA PO
[2017-02-19] MEDS ORDERED: SODIUM CHLORID 0.9% 500 ML IV PRN (12:15)
[2017-02-19] MEDS ORDERED: VANCOMYCIN 1000 MG/NS 250 ML IV SCH ×2 (12:15)
[2017-02-19] MEDS ORDERED: ceFAZolin 2 GM PREMIX 50 ML IV SCH (12:15)
[2017-02-19] MEDS ORDERED: METOPROLOL TARTRATE 25 MG TAB PO PRN (12:15)
[2017-02-19] MEDS ORDERED: Hold AM Insulin & AM Hypoglycemic medications in diabetic patients PRN (12:15)
[2017-02-19] MEDS ORDERED: LACTATED RINGER'S 1000 ML IV PRN (12:15)
[2017-02-19] MEDS ORDERED: CHLORHEXIDINE GLUCONATE 2 % 1 PACK (2 CLOTHS) TOPICAL PRN (12:15)
[2017-02-19] MEDS ORDERED: INSULIN HUMAN REGULAR 1,000 UNITS/10 ML VIAL SQ PRN (12:15)
[2017-02-19] MEDS ORDERED: CHLORHEXIDINE GLUCONATE 2 % 1 PACK (2 CLOTHS) TOPICAL SCH (12:15)
[2017-02-19] MEDS ORDERED: NO Heparin, Lovenox, Coumadin at least 12 hours prior to procedure. PRN (12:15)
[2017-02-19] MEDS ORDERED: POVIDONE IODINE 5% (ANTISEPSIS KIT) 4 APPLICATIONS EACH NARE PRN (12:15)
[2017-02-19] MEDS ORDERED: POVIDONE IODINE 5% (ANTISEPSIS KIT) 4 APPLICATIONS EACH NARE SCH (12:15)
[2017-02-19 12:37] LABS: RED BLOOD COUNT 4.78 MIL/MM3 (4.00-5.30); WHITE BLOOD COUNT 10.9 TH/MM3 (4.0-11.0)
[2017-02-19 12:38] LABS: AUTOMATED NEUTROPHIL # 6.4 TH/MM3 (1.8-7.7); BASOPHIL # 0.1 TH/MM3 (0-0.2); BASOPHIL % 0.6 % (0.0-2.0); EOSINOPHIL # 0.5 TH/MM3 (0-0.4); EOSINOPHIL % 4.1 % (0.0-4.0); HEMATOCRIT 41.8 % (35.0-46.0); HEMO FLAGS DIFF FINAL; LYMPH % 29.5 % (9.0-44.0); LYMPHOCYTE # 3.2 TH/MM3 (1.0-4.8); MEAN CELL VOLUME 87.5 FL (80.0-100.0); MEAN CORPUSCULAR HEMOGLOBIN 28.6 PG (27.0-34.0); MEAN CORPUSCULAR HGB CONC 32.6 % (32.0-36.0); MONO % 6.8 % (0.0-8.0); PLATELET COUNT 208 TH/MM3 (150-450); RED CELL DISTRIBUTION WIDTH 14.6 % (11.6-17.2)
[2017-02-19 12:57] LABS: PROTHROMBIN TIME - PATIENT 10.9 SEC (9.8-11.6)
[2017-02-19] MEDS ORDERED: MUPIROCIN 2% OINT 1 APPLIC/GM SYR NASAL SCH (13:00)
[2017-02-19 13:03] LABS: BICARBONATE 28.5 MEQ/L (21.0-32.0); POTASSIUM 3.3 MEQ/L (3.5-5.1)
[2017-02-19] MEDS ORDERED: LIDOCAINE HCL 2% 50 ML VIAL ONE (16:09)
[2017-02-19] MEDS ORDERED: SODIUM CHLORIDE 0.9% INJ 100 ML ONE (17:02)
[2017-02-19] MEDS ORDERED: PROPOFOL 200 MG/20 ML AMP IV ONE (17:20)
[2017-02-19] MEDS ORDERED: PHENYLEPH/NS 1000 MCG/10 ML SYR IV ONE (17:20)
[2017-02-19] MEDS ORDERED: ZOLPIDEM TARTRATE 5 MG TAB PO PRN (17:30)
[2017-02-19] MEDS ORDERED: traMADol HCL 50 MG TAB PO PRN (17:30)
--- NOTE | 2017-02-19 18:17 | RADRPT ---
EXAM DATE/TIME: 02/19/2017 17:56 [facility] COMPARISON: CHEST SINGLE AP, December 14, 2016, 18:02. INDICATIONS : Post pacemaker placement. MEDICAL HISTORY : Hypertension. A-Fib. SURGICAL HISTORY : Pacemaker. ENCOUNTER: Initial ACUITY: 1 day PAIN SCORE: 0/10 LOCATION: Bilateral chest FINDINGS: A single view of the chest demonstrates the lungs to be symmetrically aerated without evidence of mas s, infiltrate or effusion. The cardiomediastinal contours are unremarkable. Degenerative changes are noted in both glenohumeral joints. There are lung electrocardiogram leads. There has been interval p lacement of left subclavian AV sequential transvenous pacer. There is no pneumothorax. CONCLUSION: 1. Interval placement of left subclavian transvenous pacer with no evidence of pneumothorax. 2. No acute cardiopulmonary disease. Gaudencio Flynn MD on February 19, 2017 at 18:15 Board Certified Radiologist. This report was verified electronically.
[2017-02-19] MEDS: DILTIAZEM-CD 240 MG CAP ER PO SCH (18:28)
[2017-02-19] MEDS: LISINOPRIL 10 MG TAB PO SCH (18:28)
[2017-02-19] MEDS: METOPROLOL TARTRATE 50 MG TAB PO SCH (20:59)
[2017-02-19] MEDS ORDERED: PRAVASTATIN SOD 80 MG TAB PO SCH (21:00)
[2017-02-20] VITALS (11 sets, daily range): BP systolic 122–127; BP diastolic 67–79; PULSE 77–92; RESP 16; TEMP 97.9–98; O2SAT 95
[2017-02-20] MEDS ORDERED: VANCOMYCIN INJ 1,000 MG in SODIUM CHLOR 0.9% 250 ML INJ 250 ML IV ONE (05:30)
--- NOTE | 2017-02-20 06:54 | MP ---
cc: ARLEN KEMP MD, GLEN DATE OF SURGERY 02/19/2017 PROCEDURE Dual-chamber permanent pacemaker implantation via the left subclavian vein. INDICATIONS Tachycardia bradycardia syndrome. OPERATIVE NOTE The patient was brought to the operating suite in a fasting state after having signed informed consent. The left upper chest was prepped and draped as per policy and anesthetized with 1% lidocaine. Central venous access was obtained via the left subclavian vein twice using modified Seldinger technique after administration of 15 cc of contrast through a left arm peripheral IV. A transverse incision was made along the line of the guidewires and using blunt dissection, a subcutaneous pocket was formed down to the pectoralis fascia. Over the more lateral guidewire, a 6-Syriac sheath was placed and through this sheath a ventricular active fixation lead was introduced and its tip positioned in the right ventricular apex where a good current of injury, stimulation threshold (0.8 volts) and sensitivity (12.8 mV) were demonstrated. This lead was secured into place using 2-0 silk ties down to the pectoralis fascia. Over the remaining guidewire, another 6-Syriac sheath was placed and through this sheath an atrial active fixation lead was introduced and its tip positioned in the right atrial appendage. The patient is in atrial fibrillation so stimulation threshold could not be obtained. Sensitivity is measured at approximately 1.1 mV. Impedance was stable in this position. This lead was secured into place using 2-0 silk ties down to the pectoralis fascia. The leads were then connected to the pacemaker generator which is a Biotronik Eluna device. The leads and the generator were placed into the subcutaneous pocket which was closed using 3-0 Vicryl interrupted stitches in two layers to close the subcutaneous tissue and then 4-0 Monocryl running stitch to close the subcuticular tissue. Overlapping Steri-Strips and a dressing were applied. There were no apparent immediate complications. A portable chest x-ray is pending at the time of this dictation. CONCLUSIONS Successful dual-chamber permanent pacemaker implantation via the left subclavian vein using a Biotronik MRI compatible Eluna pacemaker generator. MD EM Cardozo/MIRIAN /5:15 PM /6:42 AM MTDD
--- NOTE | 2017-02-20 07:55 | PD.CARD.PN ---
Subjective Subjective Remarks Denies pain, dyspnea, dizziness, palpitations. Objective Medications Item Value Date Time Apixaban 5 mg 02/20/17 0900 (Eliquis) DAILY/PO Metoprolol 50 mg 02/19/172099 Tartrate BID/PO 02/19/172058 (Lopressor) Pravastatin Sodium 80 mg 02/19/172099 (Pravachol) HS/PO 02/19/172058 Diltiazem HCl 240 mg 02/19/171729 (Cardizem Cd) DAILY/PO 02/19/171827 Lisinopril 10 mg 02/19/171729 (Prinivil) DAILY/PO 02/19/171827 Vital Signs / I&O Vital Signs Date Time Temp Pulse Resp B/P Pulse Ox O2 Delivery O2 Flow Rate FiO2 02/20/17 06:00 84 02/20/17 05:13 89 02/20/17 04:00 86 02/20/17 03:45 97.9 82 16 122/67 95 02/20/17 03:00 90 02/20/17 02:04 78 02/20/17 01:00 77 02/20/17 00:00 77 02/19/17 23:30 98.0 70 16 118/67 95 02/19/17 23:00 71 02/19/17 22:00 72 02/19/17 21:00 86 02/19/17 20:00 86 02/19/17 19:15 97.5 98 18 141/98 99 02/19/17 19:00 83 02/19/17 18:00 97.4 102 16 120/85 94 02/19/17 18:00 80 02/19/17 12:39 98.1 128 18 160/96 96 I/O 02/19/17 02/19/17 02/19/17 02/20/17 02/20/17 02/20/17 07:00 15:00 23:00 07:00 15:00 23:00 Intake Total 490 ml Output Total 550 ml Balance -60 ml Intake Oral 240 ml IV Total 250 ml Output Urine Total 550 ml # Bowel Movements 0 Physical Exam Pacer site clean, dry, intact, nontender. No hematoma. Laboratory Laboratory Tests Test 02/19/17 12:25 White Blood Count 10.9 TH/MM3 Red Blood Count 4.78 MIL/MM3 Hemoglobin 13.6 GM/DL Hematocrit 41.8 % Mean Corpuscular Volume 87.5 FL Mean Corpuscular Hemoglobin 28.6 PG Mean Corpuscular Hemoglobin 32.6 % Concent Red Cell Distribution Width 14.6 % Platelet Count 208 TH/MM3 Mean Platelet Volume 8.4 FL Neutrophils (%) (Auto) 59.0 % Lymphocytes (%) (Auto) 29.5 % Monocytes (%) (Auto) 6.8 % Eosinophils (%) (Auto) 4.1 % Basophils (%) (Auto) 0.6 % Neutrophils # (Auto) 6.4 TH/MM3 Lymphocytes # (Auto) 3.2 TH/MM3 Monocytes # (Auto) 0.7 TH/MM3 Eosinophils # (Auto) 0.5 TH/MM3 Basophils # (Auto) 0.1 TH/MM3 CBC Comment DIFF FINAL Differential Comment Prothrombin Time 10.9 SEC Prothromb Time International 1.0 RATIO Ratio Activated Partial 25.0 SEC Thromboplast Time Sodium Level 142 MEQ/L Potassium Level 3.3 MEQ/L Chloride Level 105 MEQ/L Carbon Dioxide Level 28.5 MEQ/L Anion Gap 9 MEQ/L Blood Urea Nitrogen 17 MG/DL Creatinine 1.00 MG/DL Estimat Glomerular Filtration 52 ML/MIN Rate Random Glucose 105 MG/DL Calcium Level 9.7 MG/DL Imaging Last 48 hours Impressions Chest X-Ray 02/19/17 0000 Signed Impressions: Service Date/Time: Sunday, February 19, 2017 17:56 - CONCLUSION: 1. Interval placement of left subclavian transvenous pacer with no evidence of pneumothorax. 2. No acute cardiopulmonary disease. Gaudencio Flynn MD Assessment and Plan Problem List: (1) Status post placement of cardiac pacemaker Assessment and Plan: Stable overnight. Pacer site OK. Pacer re-interrogation shows stable, good pacing parameters. To discharge home today, same home medications plus Levaquin 500 mg qd for 5 days, one week f/u for incision, pacer recheck. (2) Paroxysmal atrial fibrillation Assessment and Plan: Remains in atrial fib, overall controlled HR's. To resume Eliquis. Patient to f/u as scheduled with Dr. Roblero. Code Status full code Discussed Condition With patient Nemesio Henley MD Feb 20, 2017 07:55
[2017-02-20] MEDS ORDERED: LEVA500T PO (07:58)
[2017-02-20] MEDS ORDERED: CHOLECALCIFEROL (VIT D3) 1000 UNIT TAB PO SCH (09:00)
[2017-02-20] MEDS ORDERED: APIXABAN 5 MG TABLET PO SCH (09:00)
[2017-02-20] MEDS: DILTIAZEM-CD 240 MG CAP ER PO SCH (09:12)
[2017-02-20] MEDS: METOPROLOL TARTRATE 50 MG TAB PO SCH (09:13)
[2017-02-20] MEDS: LISINOPRIL 10 MG TAB PO SCH (09:13)
--- NOTE | 2017-02-20 12:00 | EKG ---
Date Performed: 02/19/2017 Time Performed: 12:44:02 PTAGE: 86 years EKG: Atrial fibrillation with rapid ventricular response. Extensive T wave changes are nonspecif ic Abnormal ECG PREVIOUS TRACING : 12/14/2016 14.24 DOCTOR: Shaun Moreno Interpretating Date/Time 02/20/2017 11:54:05
== END 2017-02-20 09:50 | disposition home or self-care (01) ==
LOC: HDOC 11:57 → HDIC 11:58 → HDOC 17:16 → HDIC 17:16 → UNDOADMOB 17:16 → HDIC 17:35 → HCIS 17:35 → HDOC 02-20 09:50 → UNDODISOB 02-20 09:50
PROVIDERS: ATTEND Internal Medicine Cardiovascular Disease
DX: I49.5 Sick sinus syndrome (principal); I48.0 Paroxysmal atrial fibrillation; I12.9 Hypertensive chronic kidney disease with stage 1 through stage 4 chronic kidney disease, or unspecified chronic kidney disease; N18.9 Chronic kidney disease, unspecified; I42.9 Cardiomyopathy, unspecified; I34.0 Nonrheumatic mitral (valve) insufficiency; E78.5 Hyperlipidemia, unspecified; Z79.01 Long term (current) use of anticoagulants
CPT/HCPCS: 00530; 33208; 71010; 80048; 85025; 85610; 85730; 93005; C1785; C1898; J0690; J2370; J3010; J3370; J7050